=== PATIENT | female | born 1955 | race Caucasian/White ===

== ENCOUNTER 2020-02-27 10:22 | Inpatient (IN) | payer MEDICAID ==
[2020-02-27] VITALS (9 sets, daily range): BP systolic 172–214; BP diastolic 80–120; BMI 32.2
[~2020-02-27] VITALS: Ht 152.4 cm; Wt 74.8 kg
[2020-02-27] MEDS ORDERED: CATAPRES0.1 MG PO (10:53)
[2020-02-27] MEDS ORDERED: NORMODYNE / TR300 MG PO (10:53)
[2020-02-27] MEDS ORDERED: MORPHINE SULFAT60 M5 PO (10:53)
[2020-02-27] MEDS ORDERED: CARDURA8 MG PO (10:54)
[2020-02-27] MEDS ORDERED: ZANAFLEX4 MG PO (10:55)
[2020-02-27 11:50] LABS: BASOPHILS 0.2 % (0-2); EOSINOPHILS 1.4 % (0-7); HEMATOCRIT 36.5 % (36.0-48.0); HEMOGLOBIN 12.8 g/dL (12-16); IMMATURE GRANULOCYTES 0.2 % (0-5); LYMPHOCYTES 17.7 % (15-50); MCHC 35.1 g/dL (31.0-37.0); MCV 85.7 fL (80.0-100.0); MEAN PLATELET VOLUME 9.4 fL (7.4-10.4); MONOCYTES 6.9 % (2-11); NEUTROPHILS 73.6 % (40-80); PLATELET COUNT 233 10x3/uL (130-400); RBC 4.26 10x6/uL (4.00-5.40); RDW 13.2 % (11.5-14.5); WBC 8.1 10x3/uL (4.8-10.8)
[2020-02-27 11:52] LABS: CALC OSMOLALITY 279 mosm/kg (275-300); CALCIUM 10.7 mg/dL (8.5-10.1); CARBON DIOXIDE 24.6 mmol/L (21.0-32.0); CHLORIDE - SERUM 100 mmol/L (98-107); GLUCOSE 146 mg/dL (74-106); POTASSIUM - SERUM 3.2 mmol/L (3.5-5.1); SODIUM 138 mmol/L (136-145); UREA NITROGEN 16 mg/dL (7-18); eGFR NON AFRICAN AMERICAN 59 mL/min (90-120)
[2020-02-27 12:07] LABS: ALBUMIN 4.1 g/dL (3.4-5.0); ALKALINE PHOSPHATASE 80 U/L (30-120); ALT (SGPT) 94 U/L (10-68); AMYLASE - SERUM 23 U/L (25-115); BILIRUBIN - TOTAL 2.04 mg/dL (0.2-1.3); LIPASE 90 U/L (73-393); PRO BNP 534 pg/mL (0-125); PROTEIN - SERUM 7.7 g/dL (6.4-8.2); TROPONIN-I < 0.017 ng/mL (0.000-0.060)
--- NOTE | 2020-02-27 12:25 | NUR ---
URINE SENT TO THE LAB.
[2020-02-27 12:52] LABS: BILIRUBIN NEGATIVE (NEGATIVE); GLUCOSE NEGATIVE (NEGATIVE); KETONE SMALL mg/dL (NEGATIVE); NITRITE NEGATIVE (NEGATIVE); UROBILINOGEN 4 mg/dL (NORMAL)
[2020-02-27 12:55] LABS: RED CELLS - URINE 0-5 /hpf (0-5)
[2020-02-27 12:56] LABS: BACTERIA MODERATE /hpf (NEGATIVE); EPITHELIAL CELLS 0-5 /hpf (0-5)
--- NOTE | 2020-02-27 13:03 | NUR ---
PT TO RADIOLOGY
--- NOTE | 2020-02-27 17:50 | NUR ---
RECEIVED PATIENT FROM ER VIA STRETCHER. ALERT AND ORIENTED. C/O PAIN AND NAUSEA. NO S/S OF ACUTE DISTRESS NOTED. IV TO RIGHT WRIST AND FOREARM, SL. SITES PATENT WITHOUT REDNESS OR SWELLING. DENIES ANY NEEDS AT THIS TIME. VITALS STABLE. CALL LIGHT IN REACH. WILL CONTINUE TO MONITOR.
--- NOTE | 2020-02-27 20:15 | NUR ---
SITTING UP IN BED VOMITING CLEAR EMESIS. GEN WEAKNESS NOTED. ZOFRAN DRIP INFUSING IN RT FOREARM WITH NS WITH 20 MEQ KCL @ 75 ML/HR. SALINE LOCK NOTED TO RT HAND. ALERT AND ORIENTED X4. AMB WITH ASSIST X1 FOR STANDBY. B/P IS ELEVATED. HAS ORAL B/P MED.
--- NOTE | 2020-02-27 21:25 | NUR ---
NOTIFIED JATINDER CALHOUN OF ELEVATED B/P AND VOMITING. NEW ORDER NOTED FOR APRESOLINE IV AT THIS TIME.
[2020-02-28] VITALS (7 sets, daily range): BP systolic 162–210; BP diastolic 85–105; BMI 32.2
--- NOTE | 2020-02-28 00:08 | NUR ---
MEDICATED WITH MORPHINE FOR C/O ABD PAIN RATING 9. CL IN REACH.
--- NOTE | 2020-02-28 00:49 | NUR ---
B/P STILL HIGH. MEDICATED WITH SCHEDULED CATAPRES.
--- NOTE | 2020-02-28 04:05 | NUR ---
MEDICATED WITH MORPHINE FOR C/O ABD PAIN AND BACK PAIN. CL IN REACH.
[2020-02-28 05:20] LABS: BASOPHILS 0.1 % (0-2); EOSINOPHILS 0.7 % (0-7); HEMOGLOBIN 11.4 g/dL (12-16); IMMATURE GRANULOCYTES 0.6 % (0-5); LYMPHOCYTES 20.3 % (15-50); MCH 29.7 pg (26.0-34.0); MCHC 34.5 g/dL (31.0-37.0); MCV 85.9 fL (80.0-100.0); MEAN PLATELET VOLUME 9.6 fL (7.4-10.4); MONOCYTES 7.4 % (2-11); NEUTROPHILS 70.9 % (40-80); PLATELET COUNT 219 10x3/uL (130-400); RBC 3.84 10x6/uL (4.00-5.40); RDW 13.2 % (11.5-14.5); WBC 8.8 10x3/uL (4.8-10.8)
[2020-02-28 05:44] LABS: ALBUMIN 3.4 g/dL (3.4-5.0); ALKALINE PHOSPHATASE 61 U/L (30-120); ALT (SGPT) 79 U/L (10-68); BILIRUBIN - TOTAL 1.73 mg/dL (0.2-1.3); CALC OSMOLALITY 282 mosm/kg (275-300); CALCIUM 9.2 mg/dL (8.5-10.1); CHLORIDE - SERUM 106 mmol/L (98-107); CREATININE - SERUM 0.8 mg/dL (0.6-1.3); GLUCOSE 102 mg/dL (74-106); POTASSIUM - SERUM 3.1 mmol/L (3.5-5.1); PROTEIN - SERUM 6.5 g/dL (6.4-8.2); SODIUM 142 mmol/L (136-145); UREA NITROGEN 12 mg/dL (7-18); eGFR NON AFRICAN AMERICAN 76 mL/min (90-120)
--- NOTE | 2020-02-28 07:00 | NUR ---
ALERT AND ORIENTED, ASSISTED UP TO RESTROOM. NO C/O PAIN. NO S/S OF ACUTE DISTRESS NOTED. SIPS OF WATER WITH MEDS AND ICE CHIPS ONLY. STILL HAVING NAUSEA AND VOMITING THIS AM. IVS TO RIGHT WRIST SL AND FOREARM, NS WITH 20K+ INFUSING @ 75ML/HR. SITES PATENT WITHOUT REDNESS OR SWELLING. ZOFRAN DRIP @ 4.7ML/HR. POTASSIUM 3.1 THIS AM. DENIES ANY NEEDS AT THIS TIME. CALL LIGHT IN REACH. WILL CONTINUE TO MONITOR.
--- NOTE | 2020-02-28 18:29 | NUR ---
RESTING IN BED WITH EYES CLOSED. RESPIRATIONS EVEN AND UNLABORED. NO S/S OF ACUTE DISTRESS NOTED. CALL LIGHT IN REACH. WILL CONTINUE TO MONITOR.
--- NOTE | 2020-02-28 20:15 | NUR ---
ALERT AND ORIENTED X4. RESP EVEN AND NONLABORED. C/O ABD PAIN AND MEDICATED WITH MORHPINE ORDERED. DENIES NAUSEA. NO VOMITING NOTED. ZOFRAN DRIP INFUSING WITH NS WITH 20 MEQ KCL @ 75 MLHR IN RT FOREARM. SALINE LOCK NOTED TO RT HAND. AMBULATORY. GEN WEAKNESS NOTED. SR ELEVATED X2. B/P IS ELEVATED BUT HAS B/P NIGHTLY MED. WILL CONT TO MONITOR. CL IN REACH.
[2020-02-29] VITALS (8 sets, daily range): BP systolic 124–214; BP diastolic 69–110; Ht 152.4 cm; Wt 74.8 kg
--- NOTE | 2020-02-29 00:55 | NUR ---
MEDICATED WITH MORPHINE FOR C/O ABD PAIN. CL IN REACH.
--- NOTE | 2020-02-29 01:00 | NUR ---
MEDICATED WITH TYLENOL FOR C/O H/A.
--- NOTE | 2020-02-29 02:55 | NUR ---
B/P RECHECKED AND IS STILL ELEVATED. MEDICATED WITH APRESOLINE 10 MG ORDERED. WILL CONT TO MONITOR. CL IN REACH.
[2020-02-29 04:43] LABS: BASOPHILS 0.3 % (0-2); EOSINOPHILS 3.1 % (0-7); HEMATOCRIT 30.7 % (36.0-48.0); HEMOGLOBIN 10.5 g/dL (12-16); IMMATURE GRANULOCYTES 0.5 % (0-5); LYMPHOCYTES 26.5 % (15-50); MCH 29.5 pg (26.0-34.0); MCHC 34.2 g/dL (31.0-37.0); MCV 86.2 fL (80.0-100.0); MONOCYTES 9.4 % (2-11); NEUTROPHILS 60.2 % (40-80); PLATELET COUNT 177 10x3/uL (130-400); RBC 3.56 10x6/uL (4.00-5.40); RDW 13.2 % (11.5-14.5)
[2020-02-29 05:00] LABS: WBC 5.9 10x3/uL (4.8-10.8)
[2020-02-29 05:07] LABS: ALBUMIN 3.1 g/dL (3.4-5.0); ANION GAP 12.2 mmol/L (8-16); BILIRUBIN - TOTAL 1.35 mg/dL (0.2-1.3); CALCIUM 8.1 mg/dL (8.5-10.1); CARBON DIOXIDE 24.8 mmol/L (21.0-32.0); CREATININE - SERUM 0.9 mg/dL (0.6-1.3); PROTEIN - SERUM 5.9 g/dL (6.4-8.2)
--- NOTE | 2020-02-29 06:55 | NUR ---
ALERT AND ORIENTED, RESTING IN BED WITH EYES OPEN. NO C/O PAIN. NO S/S OF ACUTE DISTRESS NOTED. IVS TO RIGHT WRIST, SL AND RIGHT FOREARM, NS WITH 20K+ INFUSING @ 75ML/HR. SITES PATENT WITHOUT REDNESS OR SWELLING. POTASSIUM 3.0 THIS AM. DENIES ANY NEEDS AT THIS TIME. CALL LIGHT IN REACH. WILL CONTINUE TO MONITOR.
[2020-02-29 09:12] LABS: HEPATITIS C ANTIBODY >11.0 S/CO RAT (0.0-0.9)
--- NOTE | 2020-02-29 10:34 | NUR ---
I have reviewed this patient and I concur with the Shift Assessment completed by the Licensed Practical Nurse today this shift.
[2020-03-01] VITALS: BP 164/85
[2020-03-01 04:00] VITALS: BP 204/89
--- NOTE | 2020-03-01 06:05 | NUR ---
BP 204/89 - GAVE APRESOLINE 10 MG IV PUSH. NO OTHER NEEDS. WILL CONTINUE TO MONITOR.
[2020-03-01 06:40] LABS: BASOPHILS 0.5 % (0-2); EOSINOPHILS 6.1 % (0-7); HEMATOCRIT 29.6 % (36.0-48.0); IMMATURE GRANULOCYTES 0.2 % (0-5); MCH 29.2 pg (26.0-34.0); MCHC 33.8 g/dL (31.0-37.0); MCV 86.5 fL (80.0-100.0); MEAN PLATELET VOLUME 9.2 fL (7.4-10.4); MONOCYTES 10.5 % (2-11); NEUTROPHILS 54.7 % (40-80); PLATELET COUNT 175 10x3/uL (130-400); RBC 3.42 10x6/uL (4.00-5.40); RDW 13.5 % (11.5-14.5); WBC 4.4 10x3/uL (4.8-10.8)
--- NOTE | 2020-03-01 07:10 | NUR ---
REC'D IN WALKIN ROUND IN BED WITH EYES CLOSED EASILY AROUSED WHEN NAME IS CALLED. RESP EVEN AND UNLABORED WITH NO DISTRESS NOTED. CAN EXPRESS NEEDS AND WANTS. ASSESSMENT COMPLETED. C/L IN REACH AT BEDSIDE.
[2020-03-01 07:12] LABS: ANION GAP 11.8 mmol/L (8-16); BILIRUBIN - TOTAL 0.99 mg/dL (0.2-1.3); CALCIUM 7.7 mg/dL (8.5-10.1); CARBON DIOXIDE 25.2 mmol/L (21.0-32.0); CREATININE - SERUM 0.9 mg/dL (0.6-1.3); PROTEIN - SERUM 5.6 g/dL (6.4-8.2)
[2020-03-01 09:42] VITALS: BP 174/91
[2020-03-01 12:52] VITALS: BP 116/60
--- NOTE | 2020-03-01 13:12 | NUR ---
I have reviewed this patient and I concur with the Shift Assessment completed by the Licensed Practical Nurse today this shift.
[2020-03-01 17:15] VITALS: BP 117/63
[2020-03-01 20:00] VITALS: BP 144/71
[2020-03-02] VITALS (7 sets, daily range): BP systolic 113–183; BP diastolic 68–94
--- NOTE | 2020-03-02 02:38 | NUR ---
ALERT AND ORENTED ABLE TO VOICE NEEDS AND WANTS TO STAFF. I.V, TO LEFT FORE ARM, RIGHT WRIST, WITH NO FLUIDS. RIGHT FOREARM WITH NS WITH 20 OF K. ON ROOM AIR. UP AT CELIA NO NEEDS AT THIS TIME. LAYING IN BED WITH TV ON.
[2020-03-02 07:05] LABS: BASOPHILS 0.2 % (0-2); EOSINOPHILS 6.6 % (0-7); HEMATOCRIT 29.7 % (36.0-48.0); IMMATURE GRANULOCYTES 0.2 % (0-5); LYMPHOCYTES 26.4 % (15-50); MCH 29.2 pg (26.0-34.0); MCHC 33.7 g/dL (31.0-37.0); MCV 86.8 fL (80.0-100.0); MEAN PLATELET VOLUME 9.1 fL (7.4-10.4); MONOCYTES 7.6 % (2-11); PLATELET COUNT 161 10x3/uL (130-400); RBC 3.42 10x6/uL (4.00-5.40); RDW 13.7 % (11.5-14.5); WBC 4.6 10x3/uL (4.8-10.8)
[2020-03-02 07:29] LABS: CALC OSMOLALITY 279 mosm/kg (275-300); CALCIUM 7.6 mg/dL (8.5-10.1); CARBON DIOXIDE 23.2 mmol/L (21.0-32.0); CHLORIDE - SERUM 110 mmol/L (98-107); CREATININE - SERUM 0.8 mg/dL (0.6-1.3); GLUCOSE 105 mg/dL (74-106); POTASSIUM - SERUM 3.1 mmol/L (3.5-5.1); SODIUM 142 mmol/L (136-145); UREA NITROGEN 4 mg/dL (7-18); eGFR NON AFRICAN AMERICAN 76 mL/min (90-120)
--- NOTE | 2020-03-02 08:09 | NUR ---
RESTING IN BED, NO DISTRESS NOTED, EYES CLOSED, IV INFUSING, CONT TO MONITOR SUGARS
[2020-03-02] MEDS ORDERED: SYNTHROID25 MCG PO (20:25)
[2020-03-03] VITALS (13 sets, daily range): BP systolic 148–181; BP diastolic 54–100
[2020-03-03 07:22] LABS: ALBUMIN 3.2 g/dL (3.4-5.0); ANION GAP 10.9 mmol/L (8-16); BILIRUBIN - TOTAL 1.07 mg/dL (0.2-1.3); CALCIUM 7.8 mg/dL (8.5-10.1); CARBON DIOXIDE 24.5 mmol/L (21.0-32.0); CREATININE - SERUM 0.9 mg/dL (0.6-1.3); POTASSIUM - SERUM 3.4 mmol/L (3.5-5.1); PROTEIN - SERUM 5.9 g/dL (6.4-8.2)
--- NOTE | 2020-03-03 08:07 | NUR ---
AWAKE AND ALERT. ORIENTED X3. C/O PAIN UNDER LEFT BREAST. WILL GIVE SCHEDULED OXY SHORTLY. LUNGS ARE CLEAR BILATERALLY, NO COUGH NOTED. SKIN IS INTACT WITHOUT REDNESS. IV TO RIGHT HAND IS PATENT WITHOUT REDNESS AT INSERTION SITE. UP TO BR PER SELF. VOIDED WITHOUT DIFFICULTY. DENIES NEEDS.
[2020-03-03 12:09] LABS: ANA REFLEX - ANTICHROMATIN ABS <0.2 AI (0.0-0.9); ANA REFLEX - CENTROMERE B ABS <0.2 AI (0.0-0.9); ANA REFLEX - DBL STRANDED DNA 11 IU/mL (0-9); ANA REFLEX - DIRECT Positive (Negative); ANA REFLEX - JO-1 AB <0.2 AI (0.0-0.9); ANA REFLEX - RNP ANTIBODIES <0.2 AI (0.0-0.9); ANA REFLEX - SCL-70 <0.2 AI (0.0-0.9); ANA REFLEX - SJOGRENS AB SSA <0.2 AI (0.0-0.9); ANA REFLEX - SJOGRENS AB SSB <0.2 AI (0.0-0.9); ANA REFLEX - SMITH AB <0.2 AI (0.0-0.9)
[2020-03-03 13:04] LABS: BASOPHILS 0.2 % (0-2); EOSINOPHILS 6.4 % (0-7); HEMATOCRIT 31.6 % (36.0-48.0); HEMOGLOBIN 10.9 g/dL (12-16); IMMATURE GRANULOCYTES 0.4 % (0-5); LYMPHOCYTES 29.6 % (15-50); MCH 29.9 pg (26.0-34.0); MCHC 34.5 g/dL (31.0-37.0); MCV 86.8 fL (80.0-100.0); MEAN PLATELET VOLUME 8.9 fL (7.4-10.4); MONOCYTES 5.8 % (2-11); NEUTROPHILS 57.6 % (40-80); PLATELET COUNT 160 10x3/uL (130-400); RBC 3.64 10x6/uL (4.00-5.40); RDW 13.8 % (11.5-14.5); WBC 5.1 10x3/uL (4.8-10.8)
[2020-03-03 13:10] LABS: MITOCHONDRIAL ANTIBODY <20.0 Units (0.0-20.0); SMOOTH MUSCLE ABS (ACTIN) 5 Units (0-19)
[2020-03-03 13:13] LABS: APTT 29.7 SECONDS (22.8-39.4); INR 1.12 (0.85-1.17); PROTIME 14.4 SECONDS (11.6-15.0)
--- NOTE | 2020-03-03 13:47 | EC ---
PATIENT:CHERIE RANDALL DATE OF SERVICE: 02/27/20 SEX: F MEDICAL RECORD: [id number] DATE OF : [birth year] LOCATION:D.[facility] [place] AGE OF PATIENT: 64 ADMISSION DATE: 02/27/20 REFERRING PHYSICIAN: INTERPRETING PHYSICIAN: CASSIE NAVARRO MD ECHOCARDIOGRAM REPORT ECHO CHARGES 4 ECHO COMPLETE Date: 02/29/20 CLINICAL DIAGNOSIS: HTN, ELEVATED BNP ECHOCARDIOGRAPHIC MEASUREMENTS (adult normal given) AC root (d.<3.7cm) 2.8 cm LV Septum d (<1.2 cm> 0.9 cm Valve Excursion 1.8 cm LV Septum (systole) 1.5 cm Left Atria (s.<4.0cm> 4.0 cm LVPW d(<1.2cm) 1.1 cm RV (d.<2.3cm) 3.2 cm LVPW (sytole) 1.4 cm LV diastole(<5.6CM) 3.9 cm MV E-F(>70mm/sec) cm LV systole 2.2 cm LVOT Diameter 1.4 cm MV exc.(>10mm) cm Est.ejection fraction (50-75%) % DOPPLER: LVIT cm/sec A 82 cm/sec E 83 cm/sec LA cm/sec RVSP 32.0 mmHg LVOT 135 cm/sec AOP1/2T m/s Asc. Ao 153 cm/sec RVOT 56 cm/sec RA cm/sec PA 75 cm/sec AV Gradient Peak 9.3 mmHg AV Mean 5.6 mmHg AV Area 1.5 cm MV Gradient Peak 3.6 mmHg MV Mean 2.0 mmHg MV Area cm COMMENTS: Plater Apprentice[facility] Field Enumerator: 3 Dr. Bosch TAPE# PACS Pericardial Effusion N DATE OF SERVICE: Adequate 2D, color flow imaging, spectral Doppler, and M-Mode. No LVH. LV internal dimensions are normal. Wall motion is normal. EF is greater than or equal to 55%. Aortic valve is tricuspid. No evidence of stenosis by Doppler interrogation. Left atrium is normal. Mitral valve shows no prolapse. Trace MR. Right-sided chambers grossly normal. Trace TR. TRANSINT:[id number] Voice Confirmation ID: [id number] DOCUMENT ID: [id number] ECHOCARDIOGRAM REPORT [id number] ELIZABETHCHERIE NAGY CASSIE NAVARRO MD at 1347 CC: [id number] DICTATION DATE: 02/29/20 1345 SOLDERER TORCH: 03/01/20 0007 ADM IN [place] [address] [place] [address]
--- NOTE | 2020-03-03 14:39 | NUR ---
RETURN FROM [employer]ESSING CLEAN DRY AND INTACT NOTED TO MID UPPER ABDOMEN. VS 148/75 P 70 R 18 O2 93% RA. NO COMPLAINTS AT PRESENT. INSTRUCTED PT REGARDING BEDREST/BEDPAN X 4 HOURS. CALL LIGHT IN REACH
[2020-03-04] VITALS: BP 156/86
[2020-03-04 04:00] VITALS: BP 134/86
[2020-03-04 05:39] LABS: BASOPHILS 0.1 % (0-2); EOSINOPHILS 2.4 % (0-7); HEMATOCRIT 30.3 % (36.0-48.0); HEMOGLOBIN 10.4 g/dL (12-16); IMMATURE GRANULOCYTES 0.1 % (0-5); MCH 29.5 pg (26.0-34.0); MCHC 34.3 g/dL (31.0-37.0); MCV 85.8 fL (80.0-100.0); MEAN PLATELET VOLUME 9.5 fL (7.4-10.4); MONOCYTES 7.2 % (2-11); NEUTROPHILS 73.2 % (40-80); PLATELET COUNT 162 10x3/uL (130-400); RBC 3.53 10x6/uL (4.00-5.40); RDW 13.8 % (11.5-14.5)
[2020-03-04 05:46] LABS: WBC 6.8 10x3/uL (4.8-10.8)
[2020-03-04 06:11] LABS: ANION GAP 14.1 mmol/L (8-16); BILIRUBIN - TOTAL 1.2 mg/dL (0.2-1.3); CALCIUM 7.6 mg/dL (8.5-10.1); CARBON DIOXIDE 24.4 mmol/L (21.0-32.0); CREATININE - SERUM 0.9 mg/dL (0.6-1.3); POTASSIUM - SERUM 3.5 mmol/L (3.5-5.1); PROTEIN - SERUM 5.6 g/dL (6.4-8.2)
[2020-03-04 08:00] VITALS: BP 210/98
--- NOTE | 2020-03-04 09:00 | NUR ---
ASSESSMENT PER FLOW SHEET. PATIENT IS WITHOUT DISTRESS.CALL LIGHT IN REACH.
[2020-03-04 12:00] VITALS: BP 114/70
[2020-03-04 14:09] LABS: CEA 1.5 ng/mL (0.0-4.7)
[2020-03-04 16:00] VITALS: BP 106/58
--- NOTE | 2020-03-04 17:49 | NUR ---
REMAINS WITHOUT NEEDS,WITHOUT CHANGE. CONT PLAN OF CARE
--- NOTE | 2020-03-04 19:31 | NUR ---
ASSUMED CARE OF PATIENT AT 1900, PATIENT RESTING QUIETLY WITH EYES CLOSED, AWAKENS TO VERBAL STIMULI, IV INFUSING WITHOUT COMPLICATIONS, PATIENT AMBULATES TO BR WITH STAND BY, PATIEN TOLERATES WELL, DRESSING TO MID UPPER ABDOMIN C/D/I, DENIES NEEDS AT THIS TIME, WILL CONTINUE TO MONITOR PATIENT, CALL LIGHT WITHIN REACH
[2020-03-04 20:00] VITALS: BP 158/76
[2020-03-05 04:00] VITALS: BP 186/87
[2020-03-05 06:14] LABS: BASOPHILS 0.2 % (0-2); EOSINOPHILS 7.2 % (0-7); HEMATOCRIT 28.7 % (36.0-48.0); HEMOGLOBIN 9.9 g/dL (12-16); IMMATURE GRANULOCYTES 0.4 % (0-5); LYMPHOCYTES 23.9 % (15-50); MCH 29.9 pg (26.0-34.0); MCHC 34.5 g/dL (31.0-37.0); MCV 86.7 fL (80.0-100.0); MEAN PLATELET VOLUME 9.4 fL (7.4-10.4); MONOCYTES 10.3 % (2-11); PLATELET COUNT 151 10x3/uL (130-400); RBC 3.31 10x6/uL (4.00-5.40); WBC 5.5 10x3/uL (4.8-10.8)
[2020-03-05 06:37] LABS: ALBUMIN 2.9 g/dL (3.4-5.0); ALKALINE PHOSPHATASE 48 U/L (30-120); ALT (SGPT) 36 U/L (10-68); BILIRUBIN - TOTAL 1.13 mg/dL (0.2-1.3); CALC OSMOLALITY 281 mosm/kg (275-300); CARBON DIOXIDE 26.7 mmol/L (21.0-32.0); CHLORIDE - SERUM 109 mmol/L (98-107); CREATININE - SERUM 0.7 mg/dL (0.6-1.3); GLUCOSE 117 mg/dL (74-106); POTASSIUM - SERUM 3.2 mmol/L (3.5-5.1); PROTEIN - SERUM 5.8 g/dL (6.4-8.2); SODIUM 142 mmol/L (136-145); UREA NITROGEN 7 mg/dL (7-18); eGFR NON AFRICAN AMERICAN 89 mL/min (90-120)
--- NOTE | 2020-03-05 09:00 | NUR ---
ASSESSMENT PER FLOW SHEET. PATIENT IS WITHOUT DISTRESS.CALL LIGHT IN REACH
[2020-03-05 09:51] VITALS: BP 186/94
[2020-03-05 13:32] VITALS: BP 113/70
--- NOTE | 2020-03-05 14:28 | NUR ---
Nutrition follow-up: Diet: Regular PO intake 50-75% of meals labs reviewed WT: 165# PO intake good at this time RDN following.
--- NOTE | 2020-03-05 16:13 | NUR ---
SLEEPING ALOT TODAY. WITHOUT SIGNS OF DISTRESS.MONITOR.
[2020-03-05 16:45] VITALS: BP 123/63
[2020-03-05 20:00] VITALS: BP 133/52
[2020-03-05 22:07] LABS: HIV-1 RNA BY PCR <20 (())
[2020-03-06] VITALS: BP 166/84
--- NOTE | 2020-03-06 02:58 | NUR ---
ALERT AND ORENTED ABLE TO VOICE NEEDS AND WANTS TO STAFF. DRESSING CDI TO ABD. MORPHIN PRN FOR PAIN CONTROL. UP AT CELIA. CALL LIGHT AND WATER IN REACH AT BEDSIDE. NO NEEDS AT THIS TIME
[2020-03-06 04:04] VITALS: BP 146/79
[2020-03-06 04:08] LABS: CA 19-9 13 U/mL (0-35)
[2020-03-06 06:09] LABS: BASOPHILS 0.3 % (0-2); EOSINOPHILS 8.5 % (0-7); HEMATOCRIT 28.7 % (36.0-48.0); HEMOGLOBIN 9.5 g/dL (12-16); IMMATURE GRANULOCYTES 0.3 % (0-5); MCH 28.8 pg (26.0-34.0); MCHC 33.1 g/dL (31.0-37.0); MEAN PLATELET VOLUME 9.4 fL (7.4-10.4); NEUTROPHILS 51.9 % (40-80); PLATELET COUNT 146 10x3/uL (130-400); RDW 14.1 % (11.5-14.5)
[2020-03-06 06:40] LABS: CALC OSMOLALITY 276 mosm/kg (275-300); CALCIUM 7.7 mg/dL (8.5-10.1); CARBON DIOXIDE 25.7 mmol/L (21.0-32.0); CHLORIDE - SERUM 106 mmol/L (98-107); CREATININE - SERUM 0.8 mg/dL (0.6-1.3); GLUCOSE 101 mg/dL (74-106); POTASSIUM - SERUM 3.6 mmol/L (3.5-5.1); SODIUM 140 mmol/L (136-145); UREA NITROGEN 6 mg/dL (7-18); eGFR NON AFRICAN AMERICAN 76 mL/min (90-120)
[2020-03-06 09:12] VITALS: BP 177/96
--- NOTE | 2020-03-06 10:24 | MORECARE ---
CASE MANAGEMENT DISCHARGE SUMMARY PATIENT: CHERIE RANDALL UNIT: [id number] ADM DATE: 02/27/20 AGE: 64 : 55 SEX: F ROOM/BED: D.2231 AUTHOR: DRAKE MORENO PHYSICIAN: REFERRING PHYSICIAN: IGNACIO COLBY MD DATE OF SERVICE: 03/06/20 Discharge Plan Patient Name: CHERIE RANDALL [facility] : 1955 Planned Disposition: Home Anticipated Discharge Date: Discharge Date: Expected LOS: Initial Reviewer: [email or web address] Initial Review Date: 03/06/2020 Generated: 03/06/20 11:24 am DCPIA - Discharge Planning Initial Assessment Updated by [email or web address]: Amy Paul on 03/06/20 10:22 am * Is the patient Alert and Oriented? Yes * PCP PHANI * Pharmacy [facility] * Preadmission Environment Home with Family * ADLs Independent * Other Equipment CANE * Community resources currently utilized None * Additional services required to return to the preadmission environment? No * Can the patient safely return to the preadmission environment? Yes * Has this patient been hospitalized within the prior 30 days at any hospital? Yes Patient Name: CHERIE RANDALL Page [phone] at 1024 All edits/amendments must be made on the electronic document DICTATION DATE: 03/06/20 1024 FISH EGG PACKER: JANNA 03/06/20 1024 RPT#: [id number] DC DATE: STATUS: ADM IN [facility] [address] [place] [address] END OF REPORT
--- NOTE | 2020-03-06 10:34 | MORECARE ---
CASE MANAGEMENT DISCHARGE SUMMARY PATIENT: CHERIE RANDALL UNIT: [id number] ADM DATE: 02/27/20 AGE: 64 : 55 SEX: F ROOM/BED: D.2231 AUTHOR: DRAKE MORENO PHYSICIAN: REFERRING PHYSICIAN: IGNACIO COLBY MD DATE OF SERVICE: 03/06/20 Discharge Plan Patient Name: CHERIE RANDALL Facility: [facility]:[place] : 1955 Planned Disposition: Home Anticipated Discharge Date: Discharge Date: Expected LOS: Initial Reviewer: [email or web address] Initial Review Date: 03/06/2020 Generated: 03/06/20 11:33 am Comments DCP- Discharge Planning Updated by [email or web address]: Amy Paul on 03/06/20 9:[address] Patient Name: CHERIE RANDALL Admission Status: ER Accout number: [id number] Admission Date: 02-27-2020 : 1955 Admission Diagnosis:DISORDER OF BILIRUBIN METABOLISM, UNSPECIFIED Attending: KEZIA Current LOS: 8 Anticipated DC Date: Planned Disposition: Home Primary Insurance: MEDICAID [place] Discharge Planning Comments: CM met with patient at bedside after explaining CM role and obtaining verbal consent. CM discussed availability / needs of home health, REHAB and medical equipment. PATIENT DENIES ANY NEEDS AT THIS TIME. Sales Floor Manager: Amy Paul DCPIA - Discharge Planning Initial Assessment Updated by [email or web address]: Amy Paul on 03/06/20 10:22 am * Is the patient Alert and Oriented? Yes * PCP PHANI * Pharmacy [facility] * Preadmission Environment Home with Family * ADLs Independent * Other Equipment CANE * Community resources currently utilized None * Additional services required to return to the preadmission environment? No * Can the patient safely return to the preadmission environment? Yes * Has this patient been hospitalized within the prior 30 days at any hospital? Yes Last DP export: 03/06/20 9:24 am Patient Name: CHERIE RANDALL Page [phone] at 1034 All edits/amendments must be made on the electronic document DICTATION DATE: 03/06/20 1033 PRIMARY EDUCATION PROFESSOR: JANNA 03/06/20 1033 RPT#: [id number] DC DATE: STATUS: ADM IN [facility] [address] [place] [address] END OF REPORT
--- NOTE | 2020-03-06 10:41 | NUR ---
REC'D SITTING ON SIDE OF BED AWAKE AND ALERT. RESP EVEN AND UNLABORED WITH NO DISTRESS NOTED. CAN EXPRESS NEEDS AND WANTS. NO C/O NOTED OR VOICED. ASSESSMENT COMPLETED. C/L IN REACH AT BEDSIDE.
[2020-03-06 13:21] VITALS: BP 155/82
[2020-03-06 16:00] VITALS: BP 147/83
--- NOTE | 2020-03-06 18:42 | NUR ---
I have reviewed this patient and I concur with the Shift Assessment completed by the Licensed Practical Nurse today this shift.
[2020-03-06 20:00] VITALS: BP 187/95
--- NOTE | 2020-03-06 20:00 | NUR ---
PATIENT SITTING IN CHAIR HOLDING PILLOW. NO S/S OF ACUTE DISTRESS. PATIENT C/O PAIN IN BACK AND ABDOMEN. PAIN MEDICINE GIVEN. PATIENT HAS A RIGH WRIST IV, NORMAL SALINE WITH 20 MEQ OF K+ @ 75 ML/HR. IV IS PATENT WITHOUT REDNESS, SWELLING, OR TENDERNESS. PATIENT HAS DRESSING ON MID-UPPER ABDOMEN, DRESSING C/D/I. PATIENT IS UP ADLIB TO THE BATHROOM. CALL LIGHT WITHIN REACH. WILL CONTINUE TO MONITOR.
--- NOTE | 2020-03-06 20:30 | NUR ---
PATIENT IV INFILTRATED. IV REMOVED. CATHETER TIP INTACT. PATIENT REFUSED ANOTHER IV TO BE PLACED, "WHY DO I HAVE TO HAVE ONE IF I AM GOING HOME TOMORROW." I EXPLAINED TO PATIENT THAT SHE WON'T BE ABLE TO GET THE IV MORPHINE UNLESS WE START ANOTHER, AND THAT IF HER BLOOD PRESSURE BECOMES TOO HIGH I WILL HAVE TO START ANOTHER IV. SHE AGREED, BUT STILL REFUSE TO HAVE ONE PLACED AT THIS TIME. CALL LIGHT WITHIN REACH. WILL CONTINUE TO MONITOR.
[2020-03-07] VITALS: BP 175/90
--- NOTE | 2020-03-07 02:04 | NUR ---
I have reviewed this patient and I concur with the Shift Assessment completed by the Licensed Practical Nurse today this shift.
[2020-03-07 04:00] VITALS: BP 171/96
--- NOTE | 2020-03-07 06:45 | NUR ---
A&O RESTING IN BED WITH EYES OPEN. NO C/O PAIN. NO S/S OF ACUTE DISTRESS NOTED. REFUSED TO LET MIDDLE SCHOOL DIRECTOR NURSE RESITE IV, NO IV ACCESS. UP WITH ASSIST. REFUSED SCDS. DENIES ANY NEEDS AT THIS TIME. CALL LIGHT IN REACH. WILL CONTINUE TO MONITOR.
[2020-03-07 08:55] VITALS: BP 187/95
[2020-03-07] MEDS ORDERED: DILTIAZEM 24HR240 M4 PO (09:23)
[2020-03-07] MEDS ORDERED: MORPHINE IMMEDI15 MG PO (09:25)
[2020-03-07] MEDS ORDERED: NORMODYNE / TR300 MG PO (09:43)
--- NOTE | 2020-03-07 13:47 | NUR ---
DISCHARGED PATIENT HOME WITH FAMILY VIA WHEELCHAIR. DENIES ANY NEEDS AT THIS TIME. WENT OVER DISCHARGE INSTRUCTIONS WITH PATIENT, VERBALIZED UNDERSTANDING.
[2020-03-07 22:07] LABS: HCVGENO - HEP C QUANT 861000 IU/mL (()); HCVGENO - LOG 10 5.935 (())
--- NOTE | 2020-03-08 09:19 | MORECARE ---
CASE MANAGEMENT DISCHARGE SUMMARY PATIENT: CHERIE RANDALL UNIT: [id number] ADM DATE: 02/27/20 AGE: 64 : 55 SEX: F ROOM/BED: D.2231 AUTHOR: DRAKE MORENO PHYSICIAN: REFERRING PHYSICIAN: IGNACIO COLBY MD DATE OF SERVICE: 03/08/20 Discharge Plan Patient Name: CHERIE RANDALL Facility: [facility]:[place] : 1955 Planned Disposition: Home Anticipated Discharge Date: Discharge Date: 03/07/2020 Expected LOS: Initial Reviewer: [email or web address] Initial Review Date: 03/06/2020 Generated: 03/08/20 10:19 am Comments DCP- Discharge Planning Updated by [email or web address]: Amy Paul on 03/06/20 9:[address] Patient Name: CHERIE RANDALL Admission Status: ER Accout number: [id number] Admission Date: 02-27-2020 : 1955 Admission Diagnosis:DISORDER OF BILIRUBIN METABOLISM, UNSPECIFIED Attending: KEZIA Current LOS: 8 Anticipated DC Date: Planned Disposition: Home Primary Insurance: MEDICAID [place] Discharge Planning Comments: CM met with patient at bedside after explaining CM role and obtaining verbal consent. CM discussed availability / needs of home health, REHAB and medical equipment. PATIENT DENIES ANY NEEDS AT THIS TIME. Product Safety Coordinator: Amy Paul DCPIA - Discharge Planning Initial Assessment Updated by [email or web address]: Amy Paul on 03/06/20 10:22 am * Is the patient Alert and Oriented? Yes * PCP PHANI * Pharmacy [facility] * Preadmission Environment Home with Family * ADLs Independent * Other Equipment CANE * Community resources currently utilized None * Additional services required to return to the preadmission environment? No * Can the patient safely return to the preadmission environment? Yes * Has this patient been hospitalized within the prior 30 days at any hospital? Yes Last DP export: 03/06/20 9:33 am Patient Name: CHERIE RANDALL Page [phone] at 0919 All edits/amendments must be made on the electronic document DICTATION DATE: 08/08/20 0919 BROACHING MACHINE REPAIRER: JANNA 03/08/20918 RPT#: [id number] DC DATE:03/07/20 STATUS: DIS IN [facility] [address] [place] [address] END OF REPORT
== END 2020-03-07 13:48 | disposition home or self-care (01) | DRG 305 ==
LOC: D.ER 10:22 → D.MS 15:42
PROVIDERS: Family Medicine; General Practice; Internal Medicine Gastroenterology; Legal Medicine; ADMIT Emergency Medicine; ATTEND Emergency Medicine
PROC: 0FBG3ZX Excision of Pancreas, Percutaneous Approach, Diagnostic (ICD-10-PCS; principal; 2020-03-03 13:50)
DX: I16.0 Hypertensive urgency (principal); N39.0 Urinary tract infection, site not specified; E80.7 Disorder of bilirubin metabolism, unspecified; K31.84 Gastroparesis; R11.2 Nausea with vomiting, unspecified; R10.9 Unspecified abdominal pain; B19.20 Unspecified viral hepatitis C without hepatic coma; K86.9 Disease of pancreas, unspecified; R53.1 Weakness

== ENCOUNTER 2020-03-25 12:41 | Inpatient (IN) | payer MEDICAID ==
[~2020-03-25] VITALS: Ht 152.4 cm; Wt 68.0 kg
[2020-03-25] VITALS (7 sets, daily range): BP systolic 191–240; BP diastolic 98–118
--- NOTE | ~2020-03-25 | HEMODYNAMI ---
PATIENT:CHERIE RANDALL MEDICAL RECORD: [id number] : 55 LOCATION:D.MS [place].2214 ADMISSION DATE: 03/25/20 Generatedon:04/16/202013:52 Patient name: CHERIE RANDALL Patient #: [id number] SSN: : 1955 Date of study: 04/16/2020 Page: Of Hemodynamic Procedure Report Patient Data Patient Demographics Procedure consent was obtained First Name: CHERIE Gender: Female Last Name: TONIA : 1955 Patient #: [id number] Age: 64 year(s) Race: Unknown Additional ID: [id number] Contact details Address: [address] [place] [address] State: [place] City: [place] Zip code: [address] Past Medical History Allergies Allergen Reaction Date Comments Reported Other allergy 03/28/2020 noravasc Other allergy 04/02/2020 norvasc Other allergy 04/16/2020 [facility] Admission Admission Data Admission Date: 03/25/2020 Admission Time: 22:24 Room #: D.2214 Height (in.): 60 BSA: 1.65 (m2) Height (cm.): 152.4 BMI: 29.29 (kg/m2) Weight (lbs.): 150 Weight (kg.): 68.04 Procedure Procedure Types Cath Procedure Peripheral Cath Diagnostic Procedure Aluminizer Peripheral Procedures Biliary Biliary Catheter Exchange Procedure Description Procedure Date Procedure Date: 04/16/2020 Procedure Start Time: 13:44 Procedure Staff Name Function Toya Schaeffer RT Biomass Technician Rigoberto Segundo RT Scrub Matt Mayberry MD Performing Physician Margoth Quinones RN Nurse Procedure Data Cath Procedure Fluoroscopy Diagnostic fluoroscopy Total fluoroscopy Time: 0.3 time: 0.3 min min Diagnostic fluoroscopy Total fluoroscopy dose: 10 dose: 10 mGy mGy Contrast Material Contrast Material Type Amount (ml) Isovue 300 25 Hemodynamics Rest BSA: 1.65 (m2) O2 Consumption: Estimated: 161.99 (ml/min) O2 Consumption indexed : Estimated:98.18 (ml/min/m) Heart Rate: 82 (bpm) Snapshots Pre Cath Intra NCS Post Cath Vital Signs Time Heart Resp SPO2 etCO2 NIBP (mmHg) Rhythm Pain Sedation Rate (ipm) (%) (mmHg) Status Level (bpm) 13:33:21 80 16 97 0 135/78(117) NSR 0 (11) 10(A) , No pain 13:37:30 79 18 96 0 133/79(107) NSR 0 (11) 10(A) , No pain 13:41:42 80 15 97 0 129/72(96) NSR 0 (11) 10(A) , No pain 13:45:50 81 17 95 0 123/77(88) NSR 0 (11) 10(A) , No pain 13:49:56 78 17 96 0 128/76(114) NSR 0 (11) 10(A) , No pain Procedure Log Time Note 13:29:37 Patient Weight : 150 lbs 13:29:37 Patient Height : 60 inches 13:29:49 Use device set IR Diagnostic 13:29:50 Tegaderm 4 x 4 (1626W) opened to sterile field. 13:29:51 Sterile Angiographic Pack opened to sterile field. 13:29:52 Bag Decanter (2002S) opened to sterile field. 13:30:02 Time tracking: Regular hours (M-F 7:00 - 5:00) 13:30:57 Plan of Care:Hemodynamics will remain stable., Cardiac rhythm will remain stable., Comfort level will be maintained., Respiratory function will remain adequate., Patient/ family verbilizes understanding of procedure., Procedure tolerated without complication., Recovers from procedure without complications.. 13:31:06 Patient received from Med/Surg to IR Alert and oriented. Tansferred to table in Supine position. 13:31:09 Signed procedure consent form obtained from patient. 13:31:11 ECG and BP/O2 sat monitors applied to patient. 13:31:18 Baseline sample Acquired. 13:32:05 Vital chart was started 13:32:09 Full Disclosure recording started 13:32:11 - 13:32:16 H&P Date Dictated: 04/16/2020 Within 30 days and on chart.. 13:32:19 Pre-procedure instructions explained to patient. 13:32:20 Pre-op teaching completed and patient verbalized understanding. 13:32:23 Family unavailable. 13:32:26 Patient NPO since Midnight. 13:32:48 Patient allergic to Other allergynorvasc 13:32:53 Is the patient allergic to Iodine/contrast media? No. 13:33:19 Patient diabetic? No. 13:33:22 - 13:33:25 ----Pre-sedation anethsthesia assessment.---- 13:33:29 Previous problem with sedation/anesthesia? No ? 13:33:33 Snore? Yes 13:33:36 Sleep apnea? No 13:33:40 Deviated septum? No 13:33:43 Opens mouth fully? Yes 13:33:45 Sticks out tongue? Yes 13:33:59 Airway obstruction? No ? 13:34:07 Dentures? No ? 13:34:16 Right abdomen area was prepped with chlora-prep and draped in sterile fashion 13:34:19 - 13:44:09 Physician arrived 13:44:10 Final Timeout: patient, procedure, and site verified with staff and physician. All members of the team are in agreement. 13:44:10 --------ALL STOP TIME OUT------ 13:44:30 Fire Safety Assessment: A--An alcohol-based skin anteseptic being used preoperatively., C--Open oxygen or nitrous oxide is being used. 13:44:36 Procedure started. 13:48:14 Procedure ended.(Physican Out) 13:50:25 Report given to Med/Surg. 13:50:49 Vital chart was stopped 13:50:53 Full Disclosure recording stopped 13:52:28 Fluoroscopy time 00.30 minutes. 13:52:31 Fluoroscopy dose: 10 mGy 13:52:31 Flurop Dose total: 10 13:52:37 Contrast amount:Isovue 300 25ml. Device Usage Item Name Manufacture Quantity Catalog Hospital Part Current Minimal Lot# / Number Charge Number Stock Stock Serial# Code Tegaderm 4 x 3M 1 [id number] 4 (1626W) Sterile Cardinal 1 [id number] Angiographic Health Pack Bag Decanter [employer] 1 [id number] () [employer] Signature Audit [place] Time Signature Unsigned Intra-Procedure 04/16/2020 Toya Schaeffer RT(R) 1:50:46 PM RT(R) 04/16/2020 1:52:11 PM Intra-Procedure 04/16/2020 Toya Schaeffer 1:52:50 PM RT(R) [facility] [address] [place] [address]
--- NOTE | ~2020-03-25 | HEMODYNAMI ---
PATIENT:CHERIE RANDALL MEDICAL RECORD: [id number] : 55 [place]ATION:[place] D.2214 ADMISSION DATE: 03/25/20 Generatedon:03/28/202015:09 Patient name: CHERIE RANDALL Patient #: [id number] SSN: : 1955 Date of study: 03/28/2020 Page: Of Hemodynamic Procedure Report Patient Data Patient Demographics Procedure consent was obtained First Name: CHERIE Gender: Female Last Name: TONIA : 1955 Patient #: [id number] Age: 64 year(s) Race: Unknown Additional ID: [id number] Contact details [address]: [address] [place] [address] State: [place] City: [place] Zip code: [address] Past Medical History Allergies Allergen Reaction Date Comments Reported Other allergy 03/28/2020 [facility] Admission Admission Data Admission Date: 03/25/2020 Admission Time: 22:24 Room #: D.2214 Height (in.): 60 BSA: 1.65 (m2) Height (cm.): 152.4 BMI: 29.29 (kg/m2) Weight (lbs.): 150 Weight (kg.): 68.04 Procedure Procedure Types Cath Procedure Peripheral Cath Diagnostic Procedure Sail Lay Out Worker Peripheral Procedures Biliary PTC Procedure Description Procedure Date Procedure Date: 03/28/2020 Procedure Start Time: 14:40 Procedure Staff Name Function Matt Mayberry MD Performing Physician Toya Schaeffer RT Weather Analyst Margoth Quinones RN Nurse Rigoberto Segundo RT Scrub Pérez Ochoa CRNA Additional personnel Procedure Data Cath Procedure Fluoroscopy Diagnostic fluoroscopy Total fluoroscopy Time: 7.1 time: 7.1 min min Diagnostic fluoroscopy Total fluoroscopy dose: 159 dose: 159 mGy mGy Contrast Material Contrast Material Type Amount (ml) Isovue 300 30 Procedure Medications Medication Administration Route Dosage Lidocaine 1% added to field 20 Heparin Flush Bag added to field 2 bags (1000units/500ml NS) Refer to Anesthesia Notes for Sedation Medications Hemodynamics Rest BSA: 1.65 (m2) O2 Consumption: Estimated: 161.5 (ml/min) O2 Consumption indexed: Estimated:97.88 (ml/min/m) Heart Rate: 81 (bpm) Snapshots Pre Cath Intra NCS Post Cath Vital Signs Time Heart Resp SPO2 etCO2 NIBP (mmHg) Rhythm Pain Sedation Rate (ipm) (%) (mmHg) Status Level (bpm) 14:25:49 93 4 100 31.3 149/111(145) NSR 0 (11) 10(A) , No pain 14:29:32 77 15 100 32 151/87(127) NSR 0 (11) 10(A) , No pain 14:33:44 77 12 100 32.8 154/84(131) NSR 0 (11) 10(A) , No pain 14:37:58 74 9 100 33.5 143/83(112) NSR 0 (11) 10(A) , No pain 14:42:10 74 9 100 17.1 138/75(112) NSR 0 (11) 10(A) , No pain 14:46:22 75 10 100 14.9 137/72(113) NSR 0 (11) 10(A) , No pain 14:50:27 77 12 100 27.6 154/87(131) NSR 0 (11) 10(A) , No pain 14:54:41 74 10 100 15.6 146/80(117) NSR 0 (11) 10(A) , No pain 14:58:53 71 12 100 28.3 146/80(125) NSR 0 (11) 10(A) , No pain 15:03:07 69 17 100 27.5 141/75(118) NSR 0 (11) 10(A) , No pain 15:07:17 68 18 100 29 140/78(120) NSR 0 (11) 10(A) , No pain Medications Time Medication Route Dose Verified Delivered Reason Notes Effe ctiveness by by 14:28:33 Lidocaine 1% added 20ml Matt Gutierrez for local to vial Mayberry Mayberry anesthetic field MD BURNETT 14:28:46 Heparin Flush added 2 Matt Gutierrez used for Bag to bags Mayberry Mayberry procedure (1000units/500ml field MD BURNETT NS) 14:28:54 Refer to Matt Gutierrez Anesthesia Notes Mayberry Mayberry for Sedation MD BURNETT Medications Procedure Log Time Note 13:56:12 Patient Height : 60 inches 13:56:49 Patient Weight : 150 lbs 14:00:09 Use device set IR Diagnostic 14:00:33 KIT, INTRODUCER ACCUSTICK II W/C ([id number]) opened to sterile field. 14:00:34 Tegaderm 4 x 4 (1626W) opened to sterile field. 14:00:35 Sterile Angiographic Pack opened to sterile field. 14:00:36 Bag Decanter (2002S) opened to sterile field. 14:10:13 - 14:14:49 Time tracking: Regular hours (M-F 7:00 - 5:00) 14:15:02 Plan of Care:Hemodynamics will remain stable., Cardiac rhythm will remain stable., Comfort level will be maintained., Respiratory function will remain adequate., Patient/ family verbilizes understanding of procedure., Procedure tolerated without complication., Recovers from procedure without complications.. 14:15:09 Patient received from Med/Surg to IR Alert and oriented. Tansferred to table in Supine position. 14:15:12 Signed procedure consent form obtained from patient. 14:15:26 H&P Date Dictated: 03/28/2020 Within 30 days and on chart.. 14:15:28 Pre-procedure instructions explained to patient. 14:15:30 Pre-op teaching completed and patient verbalized understanding. 14:15:32 Family unavailable. 14:15:35 Patient NPO since Midnight. 14:15:58 Patient allergic to Other allergynoravasc 14:16:04 Is the patient allergic to Iodine/contrast media? No. 14:16:07 Is patient on blood thinner?No 14:16:10 - 14:16:13 ----Pre-sedation anethsthesia assessment.----see anesthesia notes for monitoring of patient during procedure 14:17:07 - 14:24:22 Right abdomen area was prepped with chlora-prep and draped in sterile fashion 14:24:25 - 14:24:36 ECG and BP/O2 sat monitors applied to patient. 14:24:38 Vital chart was started 14:24:49 Baseline sample Acquired. 14:24:52 Full Disclosure recording started 14:24:53 - 14:25:25 Fire Safety Assessment: A--An alcohol-based skin anteseptic being used preoperatively., C--Open oxygen or nitrous oxide is being used. 14:28:33 Lidocaine 1% 20ml vial added to field was administered by Matt Mayberry MD; for local anesthetic; Verbal order read back and verified. 14:28:46 Heparin Flush Bag (1000units/500ml NS) 2 bags added to field was administered by Matt Mayberry MD; used for procedure; Verbal order read back and verified. 14:28:54 Refer to Anesthesia Notes for Sedation Medications was administered by Matt Mayberry MD; ; Verbal order read back and verified. 14:39:05 Physician arrived 14:39:06 --------ALL STOP TIME OUT------ 14:39:07 Final Timeout: patient, procedure, and site verified with staff and physician. All members of the team are in agreement. 14:39:51 Procedure started. 14:40:15 Local anesthetic to Abdominal area with Lidocaine 1% by Matt Mayberry MD.INITIAL ACCESS ONLY 14:46:11 NITINOL .018 80cm wire ([id number]) opened to sterile field. 14:46:30 CHIBA 22 X 15 needle opened to sterile field. 14:55:26 AMPLATZ Super stiff 180cm wire ([id number]) opened to sterile field. 14:55:42 DILATOR, VESSEL 8/20 opened to sterile field. 14:55:59 PEEL-A-WAY INTRODUCER 11Fr opened to sterile field. 14:56:17 GLIDE CATHETER 5FR ANGLED 65cm (CG507) opened to sterile field. 14:56:37 ROADRUNNER .035 145 glide wire (Z05084) opened to sterile field. 15:00:06 Cook BILIARY 12 FR drainage catheter ([id number]) opened to sterile field. 15:00:07 STOPCOCK 3-Way Large Bore (M83847) opened to sterile field. 15:00:08 BAG, DRAINAGE EMPTY 600ML W/PJ (NIL279) opened to sterile field. 15:03:23 Procedure ended.(Physican Out) 15:03:47 Fluoroscopy time 07.10 minutes. 15:03:51 Flurop Dose total: 159 15:03:51 Fluoroscopy dose: 159 mGy 15:03:58 Contrast amount:Isovue 300 30ml. 15:04:06 Procedure and supply charges have been captured, reviewed, submitted an d are correct. 15:09:22 Vital chart was stopped Device Usage Item Name Manufacture Quantity Catalog Hospital Part Current Minimal Lot# / Number Charge Number Stock Stock Serial# Code KIT, [place] 1 [id number] [id number] [id number] 5 INTRODUCER Scientific ACCUSTICK II W/C ([id number]) Tegaderm 4 x 3M 1 1626W [id number] 258099 716700 5 4 (1626W) Sterile Cardinal 1 [id number] 073741 162108 5 Angiographic Health Pack Bag Decanter Microtek 1 635259 09981 549114 5 (2002S) Medical Inc. NITINOL .018 Medtronic 1 [id number] 458272 564235 5 80cm wire (A232505) CHIBA 22 X [facility] 1 L76994 442173 766306 5 15 needle AMPLATZ [place] 1 [id number] 923138 685761 936979 5 Super stiff Scientific 180cm wire ([id number]) DILATOR, [facility] 1 A34406 777904 23132 114837 5 VESSEL 03/20 PEEL-A-WAY [facility] 1 D35220 773080 312684 487234 5 INTRODUCER 11Fr GLIDE Terumo 1 CG507 549905 585110 5 CATHETER 5FR ANGLED 65cm (CG507) ROADRUNNER [facility] 1 D71088 241475 657428 690272 5 .035 145 glide wire (K45880) [place] BILIARY [facility] 1 O11451 424467 188002 083213 5 [id number] 12 FR drainage catheter (U95490) STOPCOCK [facility] 1 I76775 166756 0865 022458 5 [id number] 3-Way Large Bore (V70144) BAG, Merit 1 PSD945 471302 605962 433370 5 DRAINAGE Medical EMPTY 600ML W/PJ (KOC515) Signature Audit Natalia Stage Time Signature Unsigned Intra-Procedure 03/28/2020 Toya Schaeffer 3:09:13 PM RT(R) [facility] [address] [place] [address]
--- NOTE | ~2020-03-25 | HEMODYNAMI ---
PATIENT:CHERIE RANDALL MEDICAL RECORD: [id number] : 55 LOCATION:[facility] D.2214 ADMISSION DATE: 03/25/20 Generatedon:04/02/202012:06 Patient name: CHERIE RANDALL Patient #: [id number] SSN: : 1955 Date of study: 04/02/2020 Page: Of Hemodynamic Procedure Report Patient Data Patient Demographics Procedure consent was obtained First Name: CHERIE Gender: Female Last Name: TONIA : 1955 Patient #: [id number] Age: 64 year(s) Race: Unknown Additional ID: [id number] Contact details Address: [address] [place] [address] State: [place] City: [place] Zip code: [address] Past Medical History Allergies Allergen Reaction Date Comments Reported Other allergy 03/28/2020 [facility] Other allergy 04/02/2020 [facility] Admission Admission Data Admission Date: 03/25/2020 Admission Time: 22:24 Room #: .2214 Height (in.): 60 BSA: 1.65 (m2) Height (cm.): 152.4 BMI: 29.29 (kg/m2) Weight (lbs.): 150 Weight (kg.): 68.04 Procedure Procedure Types Cath Procedure Peripheral Cath Diagnostic Procedure Biliary Biliary Catheter Exchange Procedure Description Procedure Date Procedure Date: 04/02/2020 Procedure Start Time: 11:38 Procedure Staff Name Function Pj Watts MD Performing Physician Toya Schaeffer RT Tin Pot Operator Margoth Quinones RN Nurse Rigoberto Segundo RT Scrub Gelacio Cox MD Additional personnel Procedure Data Cath Procedure Fluoroscopy Diagnostic fluoroscopy Total fluoroscopy Time: 1 time: 1 min min Diagnostic fluoroscopy Total fluoroscopy dose: 43 dose: 43 mGy mGy Contrast Material Contrast Material Type Amount (ml) Isovue 300 25 Procedure Medications Medication Administration Route Dosage Lidocaine 1% added to field 20 Heparin Flush Bag added to field 1 bags (1000units/500ml NS) unlisted medication I.V.P.B 2 Hemodynamics Rest BSA: 1.65 (m2) O2 Consumption: Estimated: 161.71 (ml/min) O2 Consumption indexed : Estimated:98.01 (ml/min/m) Heart Rate: 81 (bpm) Snapshots Pre Cath Intra NCS Post Cath Vital Signs Time Heart Resp SPO2 etCO2 NIBP (mmHg) Rhythm Pain Sedation Rate (ipm) (%) (mmHg) Status Level (bpm) 11:35:29 85 8 96 26.2 174/102(143) NSR 0 (11) 10(A) , No pain 11:39:48 79 13 97 31.4 171/94(136) NSR 0 (11) 10(A) , No pain 11:44:01 82 14 97 26.2 174/96(144) NSR 0 (11) 10(A) , No pain 11:48:18 84 17 95 29.2 185/105(153) NSR 0 (11) 10(A) , No pain 11:52:38 83 13 97 28.4 186/101(151) NSR 0 (11) 10(A) , No pain 11:56:58 81 14 95 30.7 186/99(152) NSR 0 (11) 10(A) , No pain 12:01:18 79 13 96 28.4 186/105(156) NSR 0 (11) 10(A) , No pain 12:05:38 80 13 95 0 186/102(152) NSR 0 (11) 10(A) , No pain Medications Time Medication Route Dose Verified Delivered Reason Notes Eff ectiveness by by 11:34:47 Lidocaine 1% added 20ml Pj Oliva for local to vial Mac Watts MD anesthetic field 11:34:59 Heparin Flush added 1 Pj Oliva used for Bag to bags Mac Watts MD procedure (1000units/500ml field BURNETT NS) 11:40:29 rocephin I.V.P.B 2gm Pj Justin Per Joni Watts RN physician MD Procedure Log Time Note 10:24:48 Patient Height : 60 inches 10:24:48 Patient Weight : 150 lbs 11:21:26 Use device set IR Diagnostic 11:21:27 Tegaderm 4 x 4 (1626W) opened to sterile field. 11:21:28 Sterile Angiographic Pack opened to sterile field. 11:21:29 Bag Decanter () opened to sterile field. 11:21:50 Cook BILIARY 14FR drainage catheter (F97368) opened to sterile field. 11:21:58 Time tracking: Regular hours (M-F 7:00 - 5:00) 11:25:48 Plan of Care:Hemodynamics will remain stable., Cardiac rhythm will remain stable., Comfort level will be maintained., Respiratory function will remain adequate., Patient/ family verbilizes understanding of procedure., Procedure tolerated without complication., Recovers from procedure without complications.. 11:25:57 Patient received from Med/Surg to IR Alert and oriented. Tansferred to table in Supine position. 11:26:00 Signed procedure consent form obtained from patient. 11:26:13 H&P Date Dictated: 04/02/2020 Within 30 days and on chart.. 11:26:18 Pre-procedure instructions explained to patient. 11:26:20 Pre-op teaching completed and patient verbalized understanding. 11:26:21 Pre-op teaching completed and patient verbalized understanding. 11:26:28 Family unavailable. 11:26:31 Patient NPO since Midnight. 11:26:52 Patient allergic to Other allergynorvasc 11:26:57 Is the patient allergic to Iodine/contrast media? No. 11:27:00 Is patient on blood thinner?No 11:27:11 Patient diabetic? No. 11:27:16 - 11:27:17 ----Pre-sedation anethsthesia assessment.----see anesthesia notes for monitoring of patient during procedure 11:27:50 - 11:28:00 Right abdomen area was prepped with chlora-prep and draped in sterile fashion 11:28:02 - 11:28:10 Fire Safety Assessment: A--An alcohol-based skin anteseptic being used preoperatively., C--Open oxygen or nitrous oxide is being used. 11:34:20 Baseline sample Acquired. 11:34:26 Vital chart was started 11:34:47 Lidocaine 1% 20ml vial added to field was administered by Pj Watts MD; for local anesthetic; Verbal order read back and verified. 11:34:59 Heparin Flush Bag (1000units/500ml NS) 1 bags added to field was administered by Pj Watts MD; used for procedure; Verbal order read back and verified. 11:37:58 Physician arrived 11:37:58 --------ALL STOP TIME OUT------ 11:38:00 Final Timeout: patient, procedure, and site verified with staff and physician. All members of the team are in agreement. 11:38:29 Procedure started. 11:38:29 Full Disclosure recording started 11:38:35 Local anesthetic to Abdominal area with Lidocaine 1% by Pj Watts MD.INITIAL ACCESS ONLY 11:40:29 rocephin 2gm I.V.P.B was administered by Margoth Quinones RN; Per physician; Verbal order read back and verified. 11:41:41 BENTSON 145cm wire (L10198) opened to sterile field. 11:44:09 STOPCOCK 3-Way Large Bore ([id number]) opened to sterile field. 11:44:10 BAG, DRAINAGE EMPTY 600ML W/PJ (BAO121) opened to sterile field. 11:49:38 14fr biliary drain placed 11:50:14 Procedure ended.(Physican Out) 11:50:41 Fluoroscopy time 01.00 minutes. 11:50:45 Fluoroscopy dose: 43 mGy 11:50:45 Flurop Dose total: 43 11:50:50 Contrast amount:Isovue 300 25ml. 11:50:52 Procedure and supply charges have been captured, reviewed, submitted an d are correct. 11:51:50 Report given to Med/Surg. 12:06:49 Vital chart was stopped Device Usage Item Name Manufacture Quantity Catalog Hospital Part Current Minimal Lot# / Number Charge Number Stock Stock Serial# Code Tegaderm 4 x 3M 1 1626W [id number] 625649 [id number] 5 4 (1626W) Sterile Cardinal 1 [id number] 331248 373827 5 Angiographic Health Pack Bag Decanter Microtek 1 2001S 535417 21927 160189 5 (2001S) [employer] Cook BILIARY Cook Medical 1 A23830 279404 360673 302263 5 [id number] 14FR drainage catheter (R15348) BENTSON Cook Medical 1 R74091 536957 191065 5 145cm wire (T55185) STOPCO Cook Medical 1 N31830 180447 5489 579239 5 [id number] 3-Way Large Bore (E29123) BAG, Merit 1 [id number] 030392 403952 601358 5 DRAINAGE Medical EMPTY 600ML W/PJ (IOB326) Signature Audit Kathleen Stage Time Signature Unsigned Intra-Procedure 04/02/2020 Toya Schaeffer 12:06:45 PM RT(R) [facility] [address] [place] [address]
[~2020-03-25 12:41] MED LIST: CARDURA8 MG PO; CATAPRES0.1 MG PO; DILTIAZEM 24HR240 M4 PO; MORPHINE IMMEDI15 MG PO; MORPHINE SULFAT60 M5 PO; NORMODYNE / TR300 MG PO; SYNTHROID25 MCG PO; ZANAFLEX4 MG PO
[2020-03-25 13:36] LABS: CALC OSMOLALITY 270 mosm/kg (275-300); CHLORIDE - SERUM 99 mmol/L (98-107); CREATININE - SERUM 0.7 mg/dL (0.6-1.3); POTASSIUM - SERUM 3.5 mmol/L (3.5-5.1); SODIUM 134 mmol/L (136-145); UREA NITROGEN 10 mg/dL (7-18); eGFR NON AFRICAN AMERICAN 89 mL/min (90-120)
[2020-03-25 13:37] LABS: GLUCOSE 174 mg/dL (74-106)
[2020-03-25 13:43] LABS: ALBUMIN 3.4 g/dL (3.4-5.0); ALKALINE PHOSPHATASE 165 U/L (30-120); ALT (SGPT) 57 U/L (10-68); BILIRUBIN - TOTAL 7.15 mg/dL (0.2-1.3); PROTEIN - SERUM 6.8 g/dL (6.4-8.2)
[2020-03-25 13:49] LABS: BASOPHILS 0.2 % (0-2); EOSINOPHILS 0.9 % (0-7); HEMATOCRIT 31.2 % (36.0-48.0); HEMOGLOBIN 10.6 g/dL (12-16); IMMATURE GRANULOCYTES 0.3 % (0-5); LYMPHOCYTES 10.5 % (15-50); MCV 88.4 fL (80.0-100.0); MEAN PLATELET VOLUME 9.4 fL (7.4-10.4); MONOCYTES 7.2 % (2-11); NEUTROPHILS 80.9 % (40-80); RBC 3.53 10x6/uL (4.00-5.40); RDW 14.6 % (11.5-14.5); WBC 6.4 10x3/uL (4.8-10.8)
[2020-03-25 13:55] LABS: PLATELET COUNT 177 10x3/uL (130-400)
[2020-03-25 14:07] LABS: BILIRUBIN 2+ (NEGATIVE); KETONE NEGATIVE (NEGATIVE); NITRITE NEGATIVE (NEGATIVE); UROBILINOGEN 8 mg/dL (NORMAL)
[2020-03-25 14:09] LABS: EPITHELIAL CELLS OCC /hpf (0-5)
[2020-03-25 14:10] LABS: BACTERIA FEW /hpf (NEGATIVE); WHITE CELLS - URINE 0-5 /hpf (NEGATIVE)
--- NOTE | 2020-03-25 15:30 | NUR ---
RECEIVED PT TO ROOM AT THIS TIME.
[2020-03-25] MEDS ORDERED: FLORAJEN3 CAPS460 MG PO (23:32)
[2020-03-26] VITALS: BP 180/78
[2020-03-26 01:00] VITALS: BP 180/78; BMI 29.3
[2020-03-26] MEDS ORDERED: REGLAN5 MG PO (01:28)
[2020-03-26 04:00] VITALS: BP 193/103
--- NOTE | 2020-03-26 04:09 | NUR ---
RECEIVED TO FLOOR, ACCOMPANIED BY ER STAFF, VIA WHEELCHAIR. AMBULATES INDEPENDENTLY. A&O X 4. PAIN REPORTED ACROSS UPPER ABDOMEN, 03/10. NO N/V. REPORTS STOMACHE IS BURNING AND NEEDS ANTACID. MILK GIVEN PER REQUEST, CTM.
[2020-03-26 05:15] LABS: BILIRUBIN NEGATIVE (NEGATIVE); KETONE NEGATIVE (NEGATIVE); NITRITE NEGATIVE (NEGATIVE); UROBILINOGEN NORMAL (NORMAL)
[2020-03-26 05:16] LABS: BACTERIA FEW /hpf (NEGATIVE); EPITHELIAL CELLS 0-5 /hpf (0-5); WHITE CELLS - URINE 0-5 /hpf (NEGATIVE)
[2020-03-26 09:23] LABS: BASOPHILS 0.3 % (0-2); EOSINOPHILS 2.2 % (0-7); HEMATOCRIT 34.1 % (36.0-48.0); HEMOGLOBIN 11.5 g/dL (12-16); IMMATURE GRANULOCYTES 0.4 % (0-5); LYMPHOCYTES 11.4 % (15-50); MCH 29.8 pg (26.0-34.0); MCHC 33.7 g/dL (31.0-37.0); MCV 88.3 fL (80.0-100.0); MEAN PLATELET VOLUME 9.3 fL (7.4-10.4); MONOCYTES 9.9 % (2-11); NEUTROPHILS 75.8 % (40-80); PLATELET COUNT 190 10x3/uL (130-400); RBC 3.86 10x6/uL (4.00-5.40); RDW 14.7 % (11.5-14.5); WBC 7.3 10x3/uL (4.8-10.8)
[2020-03-26 09:45] LABS: ALBUMIN 3.6 g/dL (3.4-5.0); ALKALINE PHOSPHATASE 168 U/L (30-120); ALT (SGPT) 53 U/L (10-68); BILIRUBIN - TOTAL 7.42 mg/dL (0.2-1.3); CALC OSMOLALITY 268 mosm/kg (275-300); CALCIUM 9.8 mg/dL (8.5-10.1); CHLORIDE - SERUM 97 mmol/L (98-107); CREATININE - SERUM 0.7 mg/dL (0.6-1.3); GLUCOSE 136 mg/dL (74-106); POTASSIUM - SERUM 3.5 mmol/L (3.5-5.1); SODIUM 134 mmol/L (136-145); UREA NITROGEN 9 mg/dL (7-18); eGFR NON AFRICAN AMERICAN 89 mL/min (90-120)
[2020-03-26 09:56] LABS: INR 1.04 (0.85-1.17); PROTIME 13.6 SECONDS (11.6-15.0)
[2020-03-26 13:11] VITALS: BMI 29.2
[2020-03-26 13:46] VITALS: BP 134/83
[2020-03-26 18:10] VITALS: BP 127/70
--- NOTE | 2020-03-26 18:45 | NUR ---
PATIENT UP AMBULATING IN [place]. IV INTACT. NO COMPLAINTS. CALL LIGHT WITHIN REACH.
[2020-03-26 20:00] VITALS: BP 111/64
--- NOTE | 2020-03-26 20:30 | NUR ---
PT SITTING IN BEDSIDE CHAIR, AOX4. WITHOUT DISTRESS. IV LEFT HAND INFUSING NS @ 75. GAVE HS MEDS. PT SIGNED CONSENTS AT THIS TIME. DENIES OTHER NEEDS. CL IN REACH, WILL CTM
[2020-03-27] VITALS (7 sets, daily range): BP systolic 114–151; BP diastolic 61–82
[2020-03-27 07:02] LABS: HEMATOCRIT 29.9 % (36.0-48.0); HEMOGLOBIN 9.9 g/dL (12-16); MCH 29.7 pg (26.0-34.0); MCHC 33.1 g/dL (31.0-37.0); MCV 89.8 fL (80.0-100.0); MEAN PLATELET VOLUME 10.8 fL (7.4-10.4); PLATELET COUNT 142 10x3/uL (130-400); RBC 3.33 10x6/uL (4.00-5.40); RDW 15.2 % (11.5-14.5); WBC 5.4 10x3/uL (4.8-10.8)
[2020-03-27 07:16] LABS: ALBUMIN 3.4 g/dL (3.4-5.0); ANION GAP 16.8 mmol/L (8-16); BILIRUBIN - TOTAL 8.86 mg/dL (0.2-1.3); CALCIUM 9.4 mg/dL (8.5-10.1); POTASSIUM - SERUM 3.8 mmol/L (3.5-5.1); PROTEIN - SERUM 6.8 g/dL (6.4-8.2)
[2020-03-27 08:04] LABS: LYMPHOCYTES 10 % (15-50); MONOCYTES 1 % (2-11); NEUTROPHILS 87 % (40-80); PLATELET ESTIMATE NORMAL
--- NOTE | 2020-03-27 08:51 | NUR ---
ASSESSMENT PER FLOW SHEET. AM MEDS WITH SIPS OF WATER ONLY. NPO FOR PROCEDURE TODAY. MONITOR FOR NEEDS.AMBULATING IN [place].
--- NOTE | 2020-03-27 15:19 | NUR ---
REMAINS NPO FOR PROCEDURE SOON.FAMILY AT BEDSDE
--- NOTE | 2020-03-27 15:30 | NUR ---
LEFT UNIT VIA BED FOR PROCEDURE
--- NOTE | 2020-03-27 20:00 | NUR ---
PT SITTING UP IN BED WITHOUT DISTRESS, AOX4. SON AT BEDSIDE. PT REQUESTED AND GIVEN CHICKEN BROTH. IV LEFT FA INFUSING NS @ 75. JAUNDICE, ABD DISTENDED. DENIES NAUSEA. ABD PAIN 8/10. WILL GIVE PAIN MED ORDERED. SPOKE WITH PT ABOUT PROCEDURE TOMORROW, PT WANTS TO SPEAK WITH IR BEFORE SIGNING CONSENTS, WANTS TO KNOW MORE ABOUT THE DRAIN THEY WILL BE PLACING. VERBALIZED UNDERSTANDING ABOUT BEING NPO AFTER MN AND TAKING HIBICLENS BATH. DENIES OTHER NEEDS AT THIS TIME. CL IN REACH, WILL CTM
[2020-03-28] VITALS (14 sets, daily range): BP systolic 122–157; BP diastolic 64–84
--- NOTE | 2020-03-28 00:40 | NUR ---
PT STATES PAIN 10/10 IN ABD, GAVE MORPHINE ORDERED. DENIES OTHER NEEDS. CL IN REACH, WILL CTM
--- NOTE | 2020-03-28 03:30 | NUR ---
PT UP WALKING AROUND NURSES STATION
--- NOTE | 2020-03-28 04:51 | NUR ---
PT TAKING HIBICLENS SHOWER AT THIS TIME, WILL CTM
[2020-03-28 06:40] LABS: BASOPHILS 0.2 % (0-2); EOSINOPHILS 3.5 % (0-7); HEMATOCRIT 30.6 % (36.0-48.0); HEMOGLOBIN 10.4 g/dL (12-16); IMMATURE GRANULOCYTES 0.2 % (0-5); LYMPHOCYTES 18.2 % (15-50); MCH 30.5 pg (26.0-34.0); MCV 89.7 fL (80.0-100.0); MEAN PLATELET VOLUME 9.8 fL (7.4-10.4); MONOCYTES 8.7 % (2-11); NEUTROPHILS 69.2 % (40-80); RBC 3.41 10x6/uL (4.00-5.40); WBC 4.8 10x3/uL (4.8-10.8)
[2020-03-28 06:48] LABS: PLATELET COUNT 177 10x3/uL (130-400)
[2020-03-28 07:00] LABS: ALBUMIN 3.5 g/dL (3.4-5.0); ANION GAP 16.2 mmol/L (8-16); BILIRUBIN - DIRECT 9.65 mg/dL (0.00-0.30); BILIRUBIN - TOTAL 10.65 mg/dL (0.2-1.3); CALCIUM 9.3 mg/dL (8.5-10.1); CARBON DIOXIDE 24.2 mmol/L (21.0-32.0); CREATININE - SERUM 1.1 mg/dL (0.6-1.3); POTASSIUM - SERUM 3.4 mmol/L (3.5-5.1); PROTEIN - SERUM 6.9 g/dL (6.4-8.2)
[2020-03-28 07:32] LABS: APTT 25.4 SECONDS (22.8-39.4); INR 1.09 (0.85-1.17)
--- NOTE | 2020-03-28 08:11 | NUR ---
PATIENT SITTING UP IN CHAIR. DENIES NEEDS. IV INFUSING PER MAR. WILL CONTINUE TO ASSESS.
--- NOTE | 2020-03-28 15:40 | NUR ---
Nutrition Follow-up: Failed ERCP yesterday. Diet: NPO (previously Regular diet). NPO for biliary drain by IR today. PO intake: 0-25% x last 6 meals recorded Last BM: 03/26/20 x 2. Wt: 150# (03/26/20) Meds noted: lactulose, NS@75 Labs noted: K 3.4(L), Glu 115(H), Tbili 10.65(H), Dbili 9.65(H), AST 83(H), Alk Phos 172(H). Recommend resume Regular PO diet as soon as medically feasible. Recommend order Ensure TID once PO diet resumed. MD may consider nutrition support as patient appear to continue to be unable to meet estimated nutrition needs via adequate PO intake. RD following.
[2020-03-29 04:00] VITALS: BP 105/51
[2020-03-29 06:20] LABS: BASOPHILS 0.2 % (0-2); EOSINOPHILS 1.1 % (0-7); HEMATOCRIT 31.7 % (36.0-48.0); HEMOGLOBIN 10.5 g/dL (12-16); IMMATURE GRANULOCYTES 0.5 % (0-5); LYMPHOCYTES 15.1 % (15-50); MCH 29.6 pg (26.0-34.0); MCHC 33.1 g/dL (31.0-37.0); MCV 89.3 fL (80.0-100.0); MEAN PLATELET VOLUME 9.7 fL (7.4-10.4); MONOCYTES 8.2 % (2-11); NEUTROPHILS 74.9 % (40-80); PLATELET COUNT 208 10x3/uL (130-400); RBC 3.55 10x6/uL (4.00-5.40); RDW 15.2 % (11.5-14.5); WBC 5.5 10x3/uL (4.8-10.8)
[2020-03-29 06:43] LABS: ALBUMIN 3.2 g/dL (3.4-5.0); ALKALINE PHOSPHATASE 153 U/L (30-120); ALT (SGPT) 42 U/L (10-68); CALC OSMOLALITY 276 mosm/kg (275-300); CALCIUM 8.4 mg/dL (8.5-10.1); CHLORIDE - SERUM 102 mmol/L (98-107); GLUCOSE 109 mg/dL (74-106); POTASSIUM - SERUM 3.3 mmol/L (3.5-5.1); PROTEIN - SERUM 6.4 g/dL (6.4-8.2); SODIUM 138 mmol/L (136-145); UREA NITROGEN 13 mg/dL (7-18); eGFR NON AFRICAN AMERICAN 76 mL/min (90-120)
[2020-03-29 06:45] LABS: CREATININE - SERUM 0.8 mg/dL (0.6-1.3)
--- NOTE | 2020-03-29 07:10 | NUR ---
RECEIVED REPORT. ASSUMED CARE, A&O, UP IN CHAIR, BILIDRAIN TO RIGHT SIDE, CALL LIGHT IN REACH, BED LOWEST POSITION, DENIES NEEDS, IV TO LFA LEAKING, REMOVED TIP INTACT
[2020-03-29 08:00] VITALS: BP 195/98
[2020-03-29 13:26] VITALS: BP 171/85
--- NOTE | 2020-03-29 14:00 | NUR ---
IV INFILTRATED, ATTEMPTED TO REPLACE, PT REFUSES TO BE STUCK AGAIN
[2020-03-29 16:17] VITALS: BP 168/89
--- NOTE | 2020-03-29 17:16 | NUR ---
I have reviewed this patient and I concur with the Shift Assessment completed by the Licensed Practical Nurse today this shift.
[2020-03-29 20:00] VITALS: BP 155/76
[2020-03-30] VITALS: BP 158/82
[2020-03-30 04:00] VITALS: BP 176/85
--- NOTE | 2020-03-30 06:50 | NUR ---
A&O SITTIN UP IN CHAIR. C/O PAIN, PAIN MEDS GIVEN EARLY THIS AM. WILL GIVE AGAIN WHEN AVAILABLE. NO S/S OF ACUTE DISTRESS NOTED. JAUNDICE. ABDOMEN DISTENDED. RIGHT BILIDRAIN, DRESSING C/D/I. IV TO LEFT WRIST, NS WITH 20K+ INFUSING @ 75ML/HR. SITE PATENT WITHOUT REDNESS OR SWELLING. ON TELEMETRY 79 SR. DENIES ANY NEEDS AT THIS TIME. CALL LIGHT IN REACH WILL CONTINUE TO MONITOR.
[2020-03-30 07:03] LABS: BASOPHILS 0.2 % (0-2); EOSINOPHILS 2.9 % (0-7); HEMATOCRIT 30.6 % (36.0-48.0); IMMATURE GRANULOCYTES 0.4 % (0-5); MCH 29.3 pg (26.0-34.0); MCHC 32.7 g/dL (31.0-37.0); MCV 89.7 fL (80.0-100.0); MEAN PLATELET VOLUME 9.3 fL (7.4-10.4); MONOCYTES 10.9 % (2-11); NEUTROPHILS 68.6 % (40-80); PLATELET COUNT 190 10x3/uL (130-400); RBC 3.41 10x6/uL (4.00-5.40); RDW 15.6 % (11.5-14.5); WBC 4.8 10x3/uL (4.8-10.8)
[2020-03-30 07:55] LABS: ALBUMIN 3.1 g/dL (3.4-5.0); ALKALINE PHOSPHATASE 132 U/L (30-120); ALT (SGPT) 40 U/L (10-68); BILIRUBIN - TOTAL 4.97 mg/dL (0.2-1.3); CALC OSMOLALITY 274 mosm/kg (275-300); CALCIUM 8.4 mg/dL (8.5-10.1); CARBON DIOXIDE 22.1 mmol/L (21.0-32.0); CHLORIDE - SERUM 103 mmol/L (98-107); CREATININE - SERUM 0.8 mg/dL (0.6-1.3); GLUCOSE 110 mg/dL (74-106); POTASSIUM - SERUM 3.2 mmol/L (3.5-5.1); PROTEIN - SERUM 6.4 g/dL (6.4-8.2); SODIUM 137 mmol/L (136-145); UREA NITROGEN 12 mg/dL (7-18); eGFR NON AFRICAN AMERICAN 76 mL/min (90-120)
[2020-03-30 09:53] VITALS: BP 176/90
[2020-03-30 12:45] VITALS: BP 146/76
[2020-03-30 16:37] VITALS: BP 151/80
--- NOTE | 2020-03-30 17:24 | NUR ---
I REVIEWED THIS PATIENT AND I AGREE WITH THE SHIFT ASSESSMENT COMPLETED BY THE LEGISLATORS TODAY.
[2020-03-30 23:03] VITALS: BP 160/61
--- NOTE | 2020-03-31 02:30 | NUR ---
PT'S PAIN UNCONTROLLED. PT WINCING AND MOANING, SAYS SHE IS HAVING SHARP SHOOTING PAINS IN RIGHT ABDOMEN. RATES PAIN 9/10 AND CONSTANT. PAGED LJ CASTRO. RECEIVED ORDER FOR MORPHINE 10 MG IV PUSH Q4H PRN AND HOLD ALL PO MORPHINE ORDERS. ADMINISTERED MORPHINE 10 MG IV PUSH TO PT. WILL REASSESS AND CONTINUE TO MONITOR.
[2020-03-31 02:35] VITALS: BP 191/94
[2020-03-31 05:23] LABS: BASOPHILS 0.1 % (0-2); EOSINOPHILS 1.4 % (0-7); HEMATOCRIT 31.6 % (36.0-48.0); HEMOGLOBIN 10.4 g/dL (12-16); IMMATURE GRANULOCYTES 0.4 % (0-5); MCH 29.7 pg (26.0-34.0); MCHC 32.9 g/dL (31.0-37.0); MCV 90.3 fL (80.0-100.0); MEAN PLATELET VOLUME 9.6 fL (7.4-10.4); MONOCYTES 8.7 % (2-11); NEUTROPHILS 79.4 % (40-80); PLATELET COUNT 211 10x3/uL (130-400); RDW 15.2 % (11.5-14.5)
[2020-03-31 05:30] LABS: WBC 7.1 10x3/uL (4.8-10.8)
[2020-03-31 05:45] LABS: CALC OSMOLALITY 269 mosm/kg (275-300); CALCIUM 8.4 mg/dL (8.5-10.1); CARBON DIOXIDE 24.7 mmol/L (21.0-32.0); CHLORIDE - SERUM 101 mmol/L (98-107); CREATININE - SERUM 0.7 mg/dL (0.6-1.3); GLUCOSE 112 mg/dL (74-106); POTASSIUM - SERUM 4.2 mmol/L (3.5-5.1); SODIUM 135 mmol/L (136-145); UREA NITROGEN 10 mg/dL (7-18); eGFR NON AFRICAN AMERICAN 89 mL/min (90-120)
[2020-03-31 07:13] VITALS: BP 157/84
--- NOTE | 2020-03-31 09:10 | NUR ---
ASSESSMENT PER FLOW SHEET. PATIENT IS IN CHAIR. SHE IS WITHOUT SIGNS OF PAIN.CALL LIGHT IN REACH
[2020-03-31 09:31] VITALS: BP 180/82
[2020-03-31 12:34] VITALS: BP 180/93
[2020-03-31 17:59] VITALS: BP 155/70
[2020-03-31 20:00] VITALS: BP 150/77
[2020-04-01 04:00] VITALS: BP 183/92
[2020-04-01 08:25] VITALS: BP 192/97
--- NOTE | 2020-04-01 09:00 | NUR ---
ASSESSMENT PER FLOW SHEET. PATIENT IS WITHOUT SIGNS OF DISTRESS. MEDS ORDERED PER MAR EARLIER.CALL LIGHT IN REACH
[2020-04-01 09:40] LABS: ALBUMIN 2.9 g/dL (3.4-5.0); BILIRUBIN - DIRECT 4.44 mg/dL (0.00-0.30); BILIRUBIN - INDIRECT 0.62 mg/dL (0.00-1.00); BILIRUBIN - TOTAL 5.06 mg/dL (0.2-1.3); PROTEIN - SERUM 6.4 g/dL (6.4-8.2)
[2020-04-01 12:22] VITALS: BP 177/97
--- NOTE | 2020-04-01 13:10 | MORECARE ---
CASE MANAGEMENT DISCHARGE SUMMARY PATIENT: CHERIE RANDALL UNIT: [id number] ADM DATE: 03/25/20 AGE: 64 : 55 SEX: F ROOM/BED: D.2214 AUTHOR: DRAKE MORENO PHYSICIAN: REFERRING PHYSICIAN: YI JADE MD DATE OF SERVICE: 04/01/20 Discharge Plan Patient Name: [facility]ALL [facility] [facility] 1955 Planned Disposition: Home with Home Health Anticipated Discharge Date: Discharge Date: Expected LOS: Initial Reviewer: [email or web address] Initial Review Date: 03/26/2020 Generated: 04/01/20 2:09 pm DCPIA - Discharge Planning Initial Assessment Updated by [email or web address]: Adelaide Prakash on 04/01/20 1:06 pm * How many steps to enter\exit or inside your home? * PCP JAVIER JERONIMO * Pharmacy [facility] * Preadmission Environment Home with Family * ADLs Independent * Equipment Cane * List name and contact numbers for known caregivers / representatives who currently or will assist patient after discharge: PORFIRIO RANDALL [phone] * Verbal permission to speak to the caregivers and representatives has been obtained from the patient. N/A * Community resources currently utilized None * Additional services required to return to the preadmission environment? Yes * Can the patient safely return to the preadmission environment? Yes * Has this patient been hospitalized within the prior 30 days at any hospital? Yes Patient Name: CHERIE RANDALL Page [phone] at 1310 All edits/amendments must be made on the electronic document DICTATION DATE: 04/01/20 1309 STOREKEEPER ENGINEERING: JANNA 04/01/20 1309 RPT#: [id number] DC DATE: STATUS: ADM IN [facility] [address] [place] [address] END OF REPORT
--- NOTE | 2020-04-01 13:20 | MORECARE ---
CASE MANAGEMENT DISCHARGE SUMMARY PATIENT: CHERIE RANDALL UNIT: [id number] ADM DATE: 03/25/20 AGE: 64 : 55 SEX: F ROOM/BED: D.2214 AUTHOR: DRAKE MORENO PHYSICIAN: REFERRING PHYSICIAN: YI JADE MD DATE OF SERVICE: 04/01/20 Discharge Plan Patient Name: CHERIE RANDALL Facility: [facility]:[place] : 1955 Planned Disposition: Home with Home Health Anticipated Discharge Date: Discharge Date: Expected LOS: Initial Reviewer: [email or web address] Initial Review Date: 03/26/2020 Generated: 04/01/20 2:20 pm Comments DCP- Discharge Planning Updated by [email or web address]: Adelaide Prakash on 04/01/20 12:[address] Patient Name: CHERIE RANDALL Admission Status: ER Accout number: [id number] Admission Date: 03-25-2020 : 1955 Admission Diagnosis:DIFFUSE LARGE B-CELL LYMPHOMA, UNSPECIFIED SITE Attending: YI JADE Current LOS: 7 Anticipated DC Date: Planned Disposition: Home with Home Health Primary Insurance: MEDICAID [place] Discharge Planning Comments: CM met with patient to complete initial dc planning assessment. CM educated patient on the CM role and verbal consent given by patient to complete assessment. Patient lives at home with her where she was independent with her care. At discharge patient plans to return home and feels this is a & felt that this was a safe discharge. She did state that she may go to her mobile home ( [address] [place] [address] [place] [address]) CM discussed availability of home health, rehab services, and medical equipment. She has a cane I think she may need a walker, she appears very weak. I also encouraged home health this time and she was in agreement. ALBERT with [place] . I offered to send a referral to a in home care place to see if she might qualify. She did not want that she said she has plenty of friends who can help her. . She said that she has great friends. Patient denied known discharge needs at this time. CM will continue to follow and will assist as needed with dc plans/needs. Spa Host: Adelaide Prakash DCPIA - Discharge Planning Initial Assessment Updated by [email or web address]: Adelaide Prakash on 04/01/20 1:06 pm * How many steps to enter\exit or inside your home? * PCP JAVIER JERONIMO * Pharmacy [facility] * Preadmission Environment Home with Family * ADLs Independent * Equipment Cane * List name and contact numbers for known caregivers / representatives who currently or will assist patient after discharge: PORFIRIO RANDALL [phone] * Verbal permission to speak to the caregivers and representatives has been obtained from the patient. N/A * Community resources currently utilized None * Additional services required to return to the preadmission environment? Yes * Can the patient safely return to the preadmission environment? Yes * Has this patient been hospitalized within the prior 30 days at any hospital? Yes Coverage Notice Reviewer: [email or web address] - Adelaide Prakash Notice Issued Date-Time: 04/01/2020 13:00 Notice Type: Patient Choice Letter Notice Delivered To: Patient Relationship to Patient: Teacher Specialist Name: Delivery Method: HAND - Hand Delivered Patricia Days: Prior Verbal Notification: Recipient Understood Notice: Yes Recipient Signature: Yes Med Rec Note Co-signed by Attending: Coverage Notice Comment: demi alberto Last DP export: 04/01/20 12:10 pm Patient Name: CHERIE RANDALL Page [phone] at 1320 All edits/amendments must be made on the electronic document DICTATION DATE: 04/01/20 1320 CERTIFIED WELLNESS PROGRAM COORDINATOR: JANNA 04/01/20 1320 RPT#: [id number] DC DATE: STATUS: ADM IN [facility] [address] [place] [address] END OF REPORT
--- NOTE | 2020-04-01 13:28 | MORECARE ---
CASE MANAGEMENT DISCHARGE SUMMARY PATIENT: CHERIE RANDALL UNIT: [id number] ADM DATE: 03/25/20 AGE: 64 : 55 SEX: F ROOM/BED: D.2214 AUTHOR: DRAKE MORENO PHYSICIAN: REFERRING PHYSICIAN: YI JADE MD DATE OF SERVICE: 04/01/20 Discharge Plan Patient Name: CHERIE RANDALL Facility: [facility]:[place] : 1955 Planned Disposition: Home with Home Health Anticipated Discharge Date: Discharge Date: Expected LOS: Initial Reviewer: [email or web address] Initial Review Date: 03/26/2020 Generated: 04/01/20 2:27 pm Comments DCP- Discharge Planning Updated by [email or web address]: Adelaide Prakash on 04/01/20 12:[address] Patient Name: CHERIE RANDALL Admission Status: ER Accout number: [id number] Admission Date: 03-25-2020 : 1955 Admission Diagnosis:DIFFUSE LARGE B-CELL LYMPHOMA, UNSPECIFIED SITE Attending: YI JADE Current LOS: 7 Anticipated DC Date: Planned Disposition: Home with Home Health Primary Insurance: MEDICAID [place] Discharge Planning Comments: CM met with patient to complete initial dc planning assessment. CM educated patient on the CM role and verbal consent given by patient to complete assessment. Patient lives at home with her where she was independent with her care. At discharge patient plans to return home and feels this is a & felt that this was a safe discharge. She did state that she may go to her [place] home ( [address] [place] [address] [place] [address]) CM discussed availability of home health, rehab services, and medical equipment. She has a cane I think she may need a walker, she appears very weak. I also encouraged home health this time and she was in agreement. ALBERT with [place] . I offered to send a referral to a in home care place to see if she might qualify. She did not want that she said she has plenty of friends who can help her. . She said that she has great friends. Patient denied known discharge needs at this time. CM will continue to follow and will assist as needed with dc plans/needs. Crown Ceramist: Adelaide Prakash DCPIA - Discharge Planning Initial Assessment Updated by [email or web address]: Adelaide Prakash on 04/01/20 1:06 pm * How many steps to enter\exit or inside your home? * PCP JAVIER JERONIMO * Pharmacy [facility] * Preadmission Environment Home with Family * ADLs Independent * Equipment Cane * List name and contact numbers for known caregivers / representatives who currently or will assist patient after discharge: PORFIRIO RANDALL [phone] * Verbal permission to speak to the caregivers and representatives has been obtained from the patient. N/A * Community resources currently utilized None * Additional services required to return to the preadmission environment? Yes * Can the patient safely return to the preadmission environment? Yes * Has this patient been hospitalized within the prior 30 days at any hospital? Yes External Providers External Provider: [facility] Next Contact Date: Service Request Date: Service Type: Resolution: Reviewer: Comments: Coverage Notice Reviewer: [email or web address] - Adelaide Prakash Notice Issued Date-Time: 04/01/2020 13:00 Notice Type: Patient Choice Letter Notice Delivered To: Patient Relationship to Patient: Pole Shaver Name: Delivery Method: HAND - Hand Delivered Patricia Days: Prior Verbal Notification: Recipient Understood Notice: Yes Recipient Signature: Yes Med Rec Note Co-signed by Attending: Coverage Notice Comment: emmy COOK export: 04/01/20 12:20 pm Patient Name: CHERIE RANDALL Page [phone] at 1328 All edits/amendments must be made on the electronic document DICTATION DATE: 04/01/20 1327 BPM ARCHITECT: JANNA 04/01/20 1327 RPT#: [id number] DC DATE: STATUS: ADM IN [facility] [address] [facility] [place] [address] END OF REPORT
[2020-04-01 20:00] VITALS: BP 186/89
[2020-04-02] VITALS: BP 153/87
--- NOTE | 2020-04-02 01:07 | NUR ---
1944) REC'D. WALKING ROUNDS CHGE. OF SHIFT.SITTING UP IN CHAIR. EYES CLOSED RESP.DEEP AND EVEN.WILL CONTINUE TO MONITOR FOR ANY CHGES. AND FOLLOW PLAN OF CARE.
--- NOTE | 2020-04-02 03:50 | NUR ---
I have reviewed this patient and I concur with the Shift Assessment completed by the Licensed Practical Nurse today this shift.
[2020-04-02 04:00] VITALS: BP 183/89
[2020-04-02 05:31] LABS: BASOPHILS 0.2 % (0-2); EOSINOPHILS 2.8 % (0-7); HEMATOCRIT 30.7 % (36.0-48.0); HEMOGLOBIN 10.1 g/dL (12-16); IMMATURE GRANULOCYTES 0.5 % (0-5); LYMPHOCYTES 14.7 % (15-50); MCH 29.6 pg (26.0-34.0); MCHC 32.9 g/dL (31.0-37.0); MEAN PLATELET VOLUME 9.2 fL (7.4-10.4); MONOCYTES 10.2 % (2-11); NEUTROPHILS 71.6 % (40-80); PLATELET COUNT 223 10x3/uL (130-400); RBC 3.41 10x6/uL (4.00-5.40); WBC 5.8 10x3/uL (4.8-10.8)
[2020-04-02 05:32] LABS: INR 1.52 (0.85-1.17); PROTIME 18.1 SECONDS (11.6-15.0)
[2020-04-02 05:54] LABS: ALBUMIN 3.1 g/dL (3.4-5.0); ALKALINE PHOSPHATASE 98 U/L (30-120); ALT (SGPT) 38 U/L (10-68); BILIRUBIN - DIRECT 4.02 mg/dL (0.00-0.30); BILIRUBIN - INDIRECT 0.56 mg/dL (0.00-1.00); BILIRUBIN - TOTAL 4.58 mg/dL (0.2-1.3); CALC OSMOLALITY 268 mosm/kg (275-300); CALCIUM 8.6 mg/dL (8.5-10.1); CARBON DIOXIDE 23.2 mmol/L (21.0-32.0); CHLORIDE - SERUM 100 mmol/L (98-107); CREATININE - SERUM 0.7 mg/dL (0.6-1.3); GLUCOSE 97 mg/dL (74-106); POTASSIUM - SERUM 3.7 mmol/L (3.5-5.1); PROTEIN - SERUM 6.5 g/dL (6.4-8.2); SODIUM 135 mmol/L (136-145); UREA NITROGEN 9 mg/dL (7-18); eGFR NON AFRICAN AMERICAN 89 mL/min (90-120)
--- NOTE | 2020-04-02 08:00 | NUR ---
ASSESSMENT PER FLOW SHEET. PATIENT VERY SLEEPY THIS AM. SHE HAD PAIN MEDS BY NIGHT NURSE EDER. MONITOR FOR NEEDS
--- NOTE | 2020-04-02 09:15 | NUR ---
CALL TO PHARMACY FOR AP,SPOKE WITH
[2020-04-02 09:58] VITALS: BP 203/101
--- NOTE | 2020-04-02 11:13 | NUR ---
PREMEDS ORDERED. PATIENT LEFT UNIT VIA BED FOR PROCEDURE.
--- NOTE | 2020-04-02 12:37 | NUR ---
BACK FROM IR VIA BED. PATIENT IS WITHOUT DISTRESS
[2020-04-02 18:06] VITALS: BP 119/101
--- NOTE | 2020-04-02 18:48 | NUR ---
REMAINS WITHOUT DISTRESS.WANTS PAIN MEDS WHEN TIME. CONT PLAN OF CARE
[2020-04-02 20:00] VITALS: BP 171/88
[2020-04-03] VITALS: BP 186/96
[2020-04-03 04:00] VITALS: BP 163/81
[2020-04-03 06:32] LABS: ALBUMIN 2.9 g/dL (3.4-5.0); ALKALINE PHOSPHATASE 88 U/L (30-120); ALT (SGPT) 34 U/L (10-68); BILIRUBIN - TOTAL 4.51 mg/dL (0.2-1.3); CALC OSMOLALITY 265 mosm/kg (275-300); CALCIUM 8.5 mg/dL (8.5-10.1); CARBON DIOXIDE 22.6 mmol/L (21.0-32.0); CHLORIDE - SERUM 99 mmol/L (98-107); CREATININE - SERUM 0.6 mg/dL (0.6-1.3); GLUCOSE 118 mg/dL (74-106); POTASSIUM - SERUM 3.8 mmol/L (3.5-5.1); PROTEIN - SERUM 6.3 g/dL (6.4-8.2); SODIUM 133 mmol/L (136-145); UREA NITROGEN 10 mg/dL (7-18); eGFR NON AFRICAN AMERICAN > 90 mL/min (90-120)
[2020-04-03 06:46] LABS: BASOPHILS 0.2 % (0-2); EOSINOPHILS 1.9 % (0-7); HEMATOCRIT 29.6 % (36.0-48.0); IMMATURE GRANULOCYTES 0.3 % (0-5); LYMPHOCYTES 13.5 % (15-50); MCH 30.1 pg (26.0-34.0); MCHC 33.8 g/dL (31.0-37.0); MCV 89.2 fL (80.0-100.0); MEAN PLATELET VOLUME 9.3 fL (7.4-10.4); MONOCYTES 9.6 % (2-11); NEUTROPHILS 74.5 % (40-80); PLATELET COUNT 210 10x3/uL (130-400); RBC 3.32 10x6/uL (4.00-5.40); RDW 14.9 % (11.5-14.5); WBC 5.9 10x3/uL (4.8-10.8)
[2020-04-03 09:00] VITALS: BP 203/97
[2020-04-03 13:13] VITALS: BP 175/81
--- NOTE | 2020-04-03 16:30 | NUR ---
PATIENT DRAIN FLUSHED WITH SALINE ORDERED. NO RESISTANCE NOTED. PATIENT SITTING UP IN BED WITH IV INTACT. NO COMPLAINTS. CALL LIGHT WITHIN REACH.
[2020-04-03 17:17] VITALS: BP 164/81
[2020-04-03 20:00] VITALS: BP 192/86
--- NOTE | 2020-04-03 20:00 | NUR ---
PATIENT SITTING UP IN CHAIR. NO S/S OF ACUTE DISTRESS. PATIENT C/O PAIN, AND KNOWS THAT IT WASN'T TIME FOR PAIN MEDICINE QUITE YET. DILAUDID WILL BE GIVEN WHEN IT IS TIME. PATIENT HAS RIGHT HAND, 1/2 NORMAL SALINE WITH 20 MEQ K @ 75 ML/HR. IV IS PATENT WITHOUT REDNESS, SWELLING, OR TENDERNESS. PATIENT HAS A RIGHT BILIDRAIN. PATIENT IS JUANDICED. PATIENT LEGS ARE SWOLLEN SLIGHTLY. CALL LIGHT WITHIN REACH. WILL CONTINUE TO MONITOR.
[2020-04-04] VITALS: BP 111/57
[2020-04-04 04:00] VITALS: BP 190/89
--- NOTE | 2020-04-04 04:37 | NUR ---
I have reviewed this patient and I concur with the Shift Assessment completed by the Licensed Practical Nurse today this shift.
[2020-04-04 04:58] LABS: HEMATOCRIT 29.5 % (36.0-48.0); HEMOGLOBIN 9.9 g/dL (12-16); LYMPHOCYTES 14.3 % (15-50); MCH 30.4 pg (26.0-34.0); MCHC 33.6 g/dL (31.0-37.0); MCV 90.5 fL (80.0-100.0); MEAN PLATELET VOLUME 9.1 fL (7.4-10.4); NEUTROPHILS 73.3 % (40-80); PLATELET COUNT 190 10x3/uL (130-400); RBC 3.26 10x6/uL (4.00-5.40); RDW 14.8 % (11.5-14.5)
[2020-04-04 05:00] LABS: WBC 4.4 10x3/uL (4.8-10.8)
[2020-04-04 05:17] LABS: ALKALINE PHOSPHATASE 90 U/L (30-120); ALT (SGPT) 35 U/L (10-68); BILIRUBIN - TOTAL 4.03 mg/dL (0.2-1.3); CALC OSMOLALITY 262 mosm/kg (275-300); CALCIUM 8.2 mg/dL (8.5-10.1); CARBON DIOXIDE 20.8 mmol/L (21.0-32.0); CHLORIDE - SERUM 99 mmol/L (98-107); CREATININE - SERUM 0.7 mg/dL (0.6-1.3); GLUCOSE 105 mg/dL (74-106); POTASSIUM - SERUM 3.8 mmol/L (3.5-5.1); PROTEIN - SERUM 6.5 g/dL (6.4-8.2); SODIUM 132 mmol/L (136-145); UREA NITROGEN 8 mg/dL (7-18); eGFR NON AFRICAN AMERICAN 89 mL/min (90-120)
[2020-04-04 09:45] VITALS: BP 192/93
[2020-04-04 12:54] VITALS: BP 159/80
[2020-04-04 17:35] VITALS: BP 145/75
--- NOTE | 2020-04-04 20:00 | NUR ---
PATIENT RESTING IN CHAIR WATCHING TV. NO S/S OF ACUTE DISTRESS. PATIENT C/O PAIN AND ZANAFLEX WILL BE GIVEN. PATIENT HAS A RIGHT HAND IV, 1/2 NORMAL SALINE WITH 20 MEQ OF K @ 75 ML/HR. IV IS PATENT WITHOUT REDNESS, SWELLING, OR TENDERNESS. PATIENT IS JAUNDICED. PATIENT LEGS ARE SWOLLEN. PATIENT HAS RIGHT SIDE BILIDRAIN. CALL LIGHT WITHIN REACH. WILL CONTINUE TO MONITOR.
[2020-04-04 22:04] VITALS: BP 166/92
[2020-04-05 03:09] VITALS: BP 123/77
[2020-04-05 04:00] VITALS: BP 124/78
--- NOTE | 2020-04-05 05:41 | NUR ---
I have reviewed this patient and I concur with the Shift Assessment completed by the Licensed Practical Nurse today this shift.
[2020-04-05 07:28] LABS: BASOPHILS 0.2 % (0-2); EOSINOPHILS 1.7 % (0-7); HEMATOCRIT 28.4 % (36.0-48.0); HEMOGLOBIN 9.3 g/dL (12-16); IMMATURE GRANULOCYTES 0.2 % (0-5); LYMPHOCYTES 14.5 % (15-50); MCH 29.6 pg (26.0-34.0); MCHC 32.7 g/dL (31.0-37.0); MCV 90.4 fL (80.0-100.0); MEAN PLATELET VOLUME 9.7 fL (7.4-10.4); MONOCYTES 10.8 % (2-11); NEUTROPHILS 72.6 % (40-80); PLATELET COUNT 171 10x3/uL (130-400); RBC 3.14 10x6/uL (4.00-5.40); WBC 4.1 10x3/uL (4.8-10.8)
[2020-04-05 07:46] LABS: CALC OSMOLALITY 267 mosm/kg (275-300); CALCIUM 8.4 mg/dL (8.5-10.1); CARBON DIOXIDE 21.9 mmol/L (21.0-32.0); CHLORIDE - SERUM 100 mmol/L (98-107); CREATININE - SERUM 0.6 mg/dL (0.6-1.3); GLUCOSE 114 mg/dL (74-106); POTASSIUM - SERUM 4.3 mmol/L (3.5-5.1); SODIUM 134 mmol/L (136-145); UREA NITROGEN 9 mg/dL (7-18); eGFR NON AFRICAN AMERICAN > 90 mL/min (90-120)
--- NOTE | 2020-04-05 07:55 | NUR ---
PATIENT SITTING UP IN CHAIR HAD PAIN MEDICATION BEFORE SHIFT CHANGE, NO S/SX OF DISTRESS. IV IN RT HAND PATENT, PT ON ROOM AIR, LUNGS CLEAR TO AUSCULATION. SWELLING IN BILATERAL LOWER EXTREMITIES. NO NEEDS VOICED. CALL CARRASCO IN REACH. CONTINUE WITH PLAN OF CARE
[2020-04-05 10:26] VITALS: BP 145/90
[2020-04-05 14:48] VITALS: BP 122/76
--- NOTE | 2020-04-05 16:08 | NUR ---
SITTING UP IN CHAIR.CALL LIGHT IN REACH
[2020-04-05 17:35] VITALS: BP 139/76
--- NOTE | 2020-04-05 19:15 | NUR ---
PATIENT ALERT AND ORIENTED SITTING UP AT BEDSIDE WHEN ENTERING THE ROOM. PATIENT IS COMPLAINING OF PAIN. REQUESTS DILAUDID. PULLED UP PATIENT CHART AND PAIN MEDICATION IS DC'D AT THIS TIME. PROVIDED PATIENT WITH SUPPORT. WHEN NEXT DOSE IS DUE (1934) AND THAT THIS NURSE WILL PAGE THE ROUGH ROUNDER PROVIDER.
--- NOTE | 2020-04-05 19:20 | NUR ---
PAGEVern SHIPMAN APRN FOR DR. BARAKAT.
--- NOTE | 2020-04-05 19:46 | NUR ---
RECEIVED CALL BACK FROM RAMONITA GIORDANO APRN AND RECEIVED ORDERS TO RESTART DILAUDID 2MG IV PUSH Q 4. NO FURTHER ORDERS AT THIS TIME.
[2020-04-05 22:21] VITALS: BP 149/80
--- NOTE | 2020-04-05 23:45 | NUR ---
ADMINISTERED PAIN MEDICATION PER ORDER FOR PAIN RATING OF "8/10". PATIENT TOLERATED WELL. DENIES FURTHER NEEDS AT THIS TIME. CALL LIGHT REMAINS CLOSE. CPOC.
[2020-04-06 01:07] VITALS: BP 147/74
[2020-04-06 06:49] VITALS: BP 141/65
--- NOTE | 2020-04-06 07:43 | NUR ---
SITTING UP IN CHAIR AT BEDSIDE, EYES CLOSED, EASILY AROUSED TO SPEECH. ALERT AND ORIENTED WITH NO CURRENT S/S OF DISTRESS. IV LOCATED TO RIGHT HAND 1/2NS W/20MEQ @ 75ML/HR. BILIDRAIN PRESENT. DENIES CURRENT NEEDS, WILL CONT TO MONITOR.
[2020-04-06 09:03] VITALS: BP 176/86
[2020-04-06 12:53] VITALS: BP 158/72
--- NOTE | 2020-04-06 15:25 | NUR ---
IV INFILTRATED, REMOVED WITH CATHETER TIP INTACT. TRIED TO REINSERT WITH 2 FAILED ATTEMPTS, ANOTHER NURSE IS CURRENTLY TRYING TO RESTART. WILL CONT TO MONITOR.
--- NOTE | 2020-04-06 16:56 | NUR ---
IV PLACED TO LEFT FOREARM.
[2020-04-06 17:31] VITALS: BP 177/74
--- NOTE | 2020-04-06 19:30 | NUR ---
PATIENT ALERT AND ORIENTED SITTING IN CHAIR. PATIENT REQUESTING PAIN MEDICAITON. PULLED EMAR TO SHOW PATIENT THAT MEDICATION IS NOT DUE UNTIL 2049. PATIENT REQUESTS ZANAFLEX AT THIS TIME. ASSESSMENT PERFORMED. BILI DRAIN DRESSING SATURATED. REAPPLIED NEW DRESSING. ATTEMPTED TO PUT BACK INTO STAT LOCK BUT PATIENT COMPLAINS THAT IT HURT, SO SECURED LINE WITH TAPE. PROVIDED EDUCATION TO PATIENT ABOUT IMPORTANCE OF BILI DRAIN AND BE CAREFUL WHEN AMBULATING TO THE BATHROOM. PATIENT VERBALIZES UNDERSTANDING. DENIES FURTHER NEEDS AT THIS TIME. CALL LIGHT CLOSE. CPOC.
--- NOTE | 2020-04-06 19:40 | NUR ---
ADMINISTERED ZANAFLEX PER REQUEST, PER ORDER. CPOC.
--- NOTE | 2020-04-06 20:50 | NUR ---
ADMINISTERED HS MEDICATIONS. REMOVED PREVIOUS DURAGESIC PATCH FROM THE RIGHT SHOULDER. APPLIED NEW PATCH TO THE LEFT SHOULDER. DENIES FURTHER NEEDS AT THIS TIME. CALL LIGHT CLOSE. CPOC.
[2020-04-06 23:19] VITALS: BP 166/81
--- NOTE | 2020-04-06 23:25 | NUR ---
RESTING WITH NO SIGNS OR SYMPTOMS OF DISTRESS AT THIS TIME. BILI DRAIN CONTINUES TO DRAIN THICK, YELLOW/BROWN CONTENTS. DENIES NEEDS. CPOC.
[2020-04-07 03:24] VITALS: BP 148/77
[2020-04-07 04:36] LABS: BASOPHILS 0.2 % (0-2); EOSINOPHILS 2.5 % (0-7); HEMATOCRIT 30.6 % (36.0-48.0); HEMOGLOBIN 10.1 g/dL (12-16); IMMATURE GRANULOCYTES 0.5 % (0-5); LYMPHOCYTES 13.7 % (15-50); MCH 29.7 pg (26.0-34.0); MEAN PLATELET VOLUME 9.3 fL (7.4-10.4); NEUTROPHILS 73.1 % (40-80); RDW 14.6 % (11.5-14.5); WBC 4.4 10x3/uL (4.8-10.8)
[2020-04-07 04:46] LABS: PLATELET COUNT 216 10x3/uL (130-400)
[2020-04-07 04:55] LABS: ALKALINE PHOSPHATASE 80 U/L (30-120); ALT (SGPT) 42 U/L (10-68); BILIRUBIN - TOTAL 3.75 mg/dL (0.2-1.3); CALC OSMOLALITY 263 mosm/kg (275-300); CALCIUM 8.8 mg/dL (8.5-10.1); CARBON DIOXIDE 21.4 mmol/L (21.0-32.0); CHLORIDE - SERUM 100 mmol/L (98-107); CREATININE - SERUM 0.7 mg/dL (0.6-1.3); GLUCOSE 103 mg/dL (74-106); PROTEIN - SERUM 6.5 g/dL (6.4-8.2); SODIUM 133 mmol/L (136-145); UREA NITROGEN 7 mg/dL (7-18); eGFR NON AFRICAN AMERICAN 89 mL/min (90-120)
[2020-04-07 06:40] VITALS: BP 151/80
--- NOTE | 2020-04-07 07:15 | NUR ---
RECEIVED PATIENT FROM KUMAR CLEARY. A&O SITTING UP IN CHAIR. NO C/O PAIN. NO S/S OF ACUTE DISTRESS NOTED. DENIES ANY NEEDS AT THIS TIME. CALL LIGHT IN REACH. WILL CONTINUE TO MONITOR.
[2020-04-07 09:22] VITALS: BP 175/89
[2020-04-07 13:05] VITALS: BP 176/89
--- NOTE | 2020-04-07 14:55 | NUR ---
I have reviewed this patient and I concur with the Shift Assessment completed by the Licensed Practical Nurse today this shift.
[2020-04-07 17:54] VITALS: BP 177/86
--- NOTE | 2020-04-07 18:30 | NUR ---
A&O SITTING UP IN CHAIR. C/O PAIN, GAVE DILAUDID 2MG IV FOR A PAIN 04/10. NO S/S OF ACUTE DISTRESS NOTED. DENIES ANY NEEDS AT THIS TIME. CALL LIGHT IN REACH. WILL CONTINUE TO MONITOR.
--- NOTE | 2020-04-07 19:00 | NUR ---
PATIENT SITTING UP IN CHAIR. STATES SHE JUST RECEIVED PAIN MEDICINE. ALERT AND ORIENTED. DENIES NEEDS AT THIS TIME. ASSESSMENT PERFORMED. CHECKED BILI DRAIN, APPLIED NEW DRESSING. DRAINING GREEN DISCHARGE. CALL LIGHT CLOSE. CPOC.
[2020-04-07 20:00] VITALS: BP 126/69
[2020-04-08] VITALS: BP 150/78
[2020-04-08 04:00] VITALS: BP 144/83
--- NOTE | 2020-04-08 08:45 | NUR ---
PATIENT SITTING UP IN CHAIR WITH NO COMPLAINTS OR SIGN SO OF DISTRESS. IV INTACT. CALL LIGHT WITHIN REACH.
[2020-04-08 08:55] VITALS: BP 158/85
[2020-04-08 11:17] VITALS: Ht 152.4 cm; Wt 68.0 kg
[2020-04-08 13:19] VITALS: BP 161/91
--- NOTE | 2020-04-08 14:30 | NUR ---
PATIENT IN BED WITH IV INTACT. NO COMPLAINTS OR SIGNS OF DISTRESS. WAITING TO GO TO OR.
--- NOTE | 2020-04-08 14:37 | NUR ---
Nutrition follow-up: Pt NPO for port placement today Chemotherapy to begin Labs reviewed Pt had been receiving a low sodium diet wiht po intake ~25-50% of meals No new wt to assess Please weigh pt RDN following.
[2020-04-08 17:06] VITALS: BP 186/74
--- NOTE | 2020-04-08 18:45 | NUR ---
PATIENT SITTING UP IN BED WITH IV INTACT. NO COMPLAINTS OR SIGNS OF DISTRESS. DRAIN INTACT. EMPTIED. FLUSHED EARLIER TODAY WITH NS ORDERED. CALL LIGHT WITHIN REACH.
[2020-04-08 20:00] VITALS: BP 158/80
[2020-04-09] VITALS: BP 159/82
--- NOTE | 2020-04-09 03:59 | NUR ---
I have reviewed this patient and I concur with the Shift Assessment completed by the Licensed Practical Nurse today this shift.
[2020-04-09 04:00] VITALS: BP 157/75
[2020-04-09 05:17] LABS: BASOPHILS 0.3 % (0-2); EOSINOPHILS 2.6 % (0-7); HEMATOCRIT 29.6 % (36.0-48.0); HEMOGLOBIN 9.7 g/dL (12-16); IMMATURE GRANULOCYTES 0.3 % (0-5); LYMPHOCYTES 18.9 % (15-50); MCH 29.2 pg (26.0-34.0); MCHC 32.8 g/dL (31.0-37.0); MCV 89.2 fL (80.0-100.0); MEAN PLATELET VOLUME 9.6 fL (7.4-10.4); MONOCYTES 12.3 % (2-11); NEUTROPHILS 65.6 % (40-80); PLATELET COUNT 190 10x3/uL (130-400); RBC 3.32 10x6/uL (4.00-5.40); RDW 14.5 % (11.5-14.5)
[2020-04-09 05:31] LABS: ALBUMIN 2.9 g/dL (3.4-5.0); ALKALINE PHOSPHATASE 79 U/L (30-120); ALT (SGPT) 59 U/L (10-68); BILIRUBIN - TOTAL 3.64 mg/dL (0.2-1.3); CALC OSMOLALITY 263 mosm/kg (275-300); CALCIUM 8.9 mg/dL (8.5-10.1); CARBON DIOXIDE 23.4 mmol/L (21.0-32.0); CHLORIDE - SERUM 100 mmol/L (98-107); CREATININE - SERUM 0.7 mg/dL (0.6-1.3); GLUCOSE 99 mg/dL (74-106); PROTEIN - SERUM 6.4 g/dL (6.4-8.2); SODIUM 133 mmol/L (136-145); UREA NITROGEN 7 mg/dL (7-18); eGFR NON AFRICAN AMERICAN 89 mL/min (90-120)
--- NOTE | 2020-04-09 06:50 | NUR ---
A&O SITTING UP IN THE CHAIR. JUST GOT OUT OF SHOWER. C/O PAIN, WILL GIVE PAIN MEDS WHEN AVAILABLE AGAIN. NO S/S OF ACUTE DISTRESS NOTED. SCHEDULED FOR A PORT PLACEMENT TODAY TO START CHEMO. IV TO LEFT FOREARM, 1/2 NS WITH 20K+ INFUSING @ 75ML/HR. SITE PATENT WITHOUT REDNESS OR SWELLING. BILIDRAIN TO RUQ. BILATERAL LOWER EXTREMITY EDEMA PRESENT, GENERALIZED. ON TELEMETRY SR 82. DENIES ANY NEEDS AT THIS TIME. CALL LIGHT IN REACH. WILL CONTINUE TO MONITOR.
--- NOTE | 2020-04-09 07:44 | NUR ---
GAVE PATIENT 2MG DILAUDID IV PUSH FOR PAIN 03/10.
[2020-04-09 09:18] VITALS: BP 152/83
[2020-04-09 12:27] VITALS: BP 153/78
--- NOTE | 2020-04-09 12:40 | NUR ---
I have reviewed this patient and I concur with the Shift Assessment completed by the Licensed Practical Nurse today this shift.
[2020-04-09 18:01] VITALS: BP 123/72
--- NOTE | 2020-04-09 18:39 | NUR ---
A&O RESTING IN BED WITH EYES OPEN. NO C/O PAIN. NO S/S OF ACUTE DISTRESS NOTED. CALL LIGHT IN REACH. DENIES ANY NEEDS. WILL CONTINUE TO MONITOR.
[2020-04-09 20:00] VITALS: BP 147/85
[2020-04-10] VITALS (7 sets, daily range): BP systolic 125–168; BP diastolic 72–84
--- NOTE | 2020-04-10 02:34 | NUR ---
I have reviewed this patient and I concur with the Shift Assessment completed by the Licensed Practical Nurse today this shift.
[2020-04-10 06:27] LABS: BASOPHILS 0.2 % (0-2); EOSINOPHILS 0.8 % (0-7); HEMATOCRIT 28.2 % (36.0-48.0); HEMOGLOBIN 9.3 g/dL (12-16); IMMATURE GRANULOCYTES 0.4 % (0-5); MCH 29.3 pg (26.0-34.0); MEAN PLATELET VOLUME 9.1 fL (7.4-10.4); MONOCYTES 8.9 % (2-11); NEUTROPHILS 78.7 % (40-80); RBC 3.17 10x6/uL (4.00-5.40); RDW 14.6 % (11.5-14.5)
[2020-04-10 06:28] LABS: PLATELET COUNT 232 10x3/uL (130-400); WBC 5.3 10x3/uL (4.8-10.8)
[2020-04-10 06:43] LABS: ALBUMIN 2.9 g/dL (3.4-5.0); ALKALINE PHOSPHATASE 77 U/L (30-120); ALT (SGPT) 54 U/L (10-68); CALC OSMOLALITY 270 mosm/kg (275-300); CALCIUM 8.5 mg/dL (8.5-10.1); CARBON DIOXIDE 22.2 mmol/L (21.0-32.0); CHLORIDE - SERUM 101 mmol/L (98-107); CREATININE - SERUM 0.8 mg/dL (0.6-1.3); GLUCOSE 133 mg/dL (74-106); PROTEIN - SERUM 6.5 g/dL (6.4-8.2); SODIUM 135 mmol/L (136-145); eGFR NON AFRICAN AMERICAN 76 mL/min (90-120)
[2020-04-10 06:44] LABS: UREA NITROGEN 9 mg/dL (7-18)
--- NOTE | 2020-04-10 06:45 | NUR ---
A&O SITTING UP IN CHAIR. NO C/O PAIN. NO S/S OF ACUTE DISTRESS NOTED. LEFT CHEST PORT, 1/2 NS WITH 20K+ INFUSING @ 75ML/HR. SITE PATENT WITHOUT REDNESS OR SWELLING. BLE EDEMA, GENERALIZED. ON TELEMETRY SR 73. WBC UP TO 5.3 THIS AM. PERIPHERAL IV TO LEFT FOREARM, SL. SITE PATENT WITHOUT REDNESS OR SWELLING. PATIENT IN GOOD SPIRITS THIS AM. DRAIN TO RUQ, DRESSING C/D/I. DENIES ANY NEEDS AT THIS TIME. CALL LIGHT IN REACH. WILL CONTINUE TO MONITOR.
--- NOTE | 2020-04-10 10:54 | NUR ---
I have reviewed this patient and I concur with the Shift Assessment completed by the Licensed Practical Nurse today this shift.
--- NOTE | 2020-04-10 18:19 | NUR ---
A&O SITTING UP IN CHAIR. NO C/O PAIN. NO S/S OF ACUTE DISTRESS NOTED. DENIES ANY NEEDS AT THIS TIME. CALL LIGHT IN REACH. WILL CONTINUE TO MONITOR.
--- NOTE | 2020-04-11 07:43 | NUR ---
PT SITTING UP IN CHAIR. REQUESTING AND WILL RECIEVE PAIN MEDICATION. CL IN REACH. WCTM
[2020-04-11 09:07] VITALS: BP 158/86
--- NOTE | 2020-04-11 11:09 | NUR ---
P0RT CHECKED FOR BLOOD RETURN, GOOD BLOOD RETURN.CHEMO STARTED. PATIENT SITTINT UP IN CHAIR, PATIENT DIDN`T WANT TO LAY DOWN, VV TAKEN BP 156/86 RESP 18. HR 86 O2 SAT 96%. TELEMETERY CALLED FOR READING HR 82 SR PER GAS ROLLER OPERATOR
--- NOTE | 2020-04-11 11:24 | NUR ---
PT SITTING IN CHAIR. SHADI QUIÑONES, RN IN ROOM GIVING CHEMO. CL IN REACH. WCTM
--- NOTE | 2020-04-11 12:22 | NUR ---
2nd bag OF CHEMO READY TO HANG, PORT FLUSHED WITH NS WITH A GOOD BLOOD RETURN 2 ND BAG CHEMO HUNG, PATIENT C/P ON SCALE OF 10 , PAIN MEDICATION GIVEN PER IV IN LEFT FOREARM SLOW PUSH BP 178/95
[2020-04-11 14:56] VITALS: BP 174/98
--- NOTE | 2020-04-11 19:10 | NUR ---
assumed care of patient at 1900, patient awake sitting up in chair, c/o abdominal pain, bili drain intact, iv infusing without complications, will continue to monitor patient, call light within reach
[2020-04-12 01:13] VITALS: BP 143/75
[2020-04-12 06:34] LABS: BASOPHILS 0 % (0-2); EOSINOPHILS 0.2 % (0-7); HEMATOCRIT 29.1 % (36.0-48.0); HEMOGLOBIN 9.7 g/dL (12-16); IMMATURE GRANULOCYTES 0.5 % (0-5); LYMPHOCYTES 10.2 % (15-50); MCH 29.6 pg (26.0-34.0); MCHC 33.3 g/dL (31.0-37.0); MCV 88.7 fL (80.0-100.0); MEAN PLATELET VOLUME 9.3 fL (7.4-10.4); NEUTROPHILS 80.1 % (40-80); PLATELET COUNT 207 10x3/uL (130-400); RBC 3.28 10x6/uL (4.00-5.40); RDW 14.3 % (11.5-14.5); WBC 5.9 10x3/uL (4.8-10.8)
[2020-04-12 06:51] LABS: ALBUMIN 3.1 g/dL (3.4-5.0); ALKALINE PHOSPHATASE 79 U/L (30-120); ALT (SGPT) 48 U/L (10-68); BILIRUBIN - TOTAL 2.99 mg/dL (0.2-1.3); CALC OSMOLALITY 267 mosm/kg (275-300); CALCIUM 8.5 mg/dL (8.5-10.1); CARBON DIOXIDE 22.7 mmol/L (21.0-32.0); CHLORIDE - SERUM 99 mmol/L (98-107); CREATININE - SERUM 0.7 mg/dL (0.6-1.3); GLUCOSE 114 mg/dL (74-106); POTASSIUM - SERUM 3.9 mmol/L (3.5-5.1); PROTEIN - SERUM 6.7 g/dL (6.4-8.2); SODIUM 134 mmol/L (136-145); UREA NITROGEN 10 mg/dL (7-18); eGFR NON AFRICAN AMERICAN 89 mL/min (90-120)
--- NOTE | 2020-04-12 08:00 | NUR ---
PATIENT SITTING UP IN CHAIR. IV INTACT. PAIN MEDS AT THIS TIME. NO OTHER COMPLAINTS. DRAIN INTACT. WILL CONTINUE TO MONITOR, CALL LIGHT WITHIN REACH.
[2020-04-12 09:50] VITALS: BP 189/96
--- NOTE | 2020-04-12 11:12 | NUR ---
PATIENT SITTING UP IN CHAIR SLEEPING. NO COMPLAINTS OR SIGNS OF DISTRESS. CALL LIGHT WITHIN REACH.
[2020-04-12 16:00] VITALS: BP 144/73
--- NOTE | 2020-04-12 19:35 | NUR ---
PATIENT SITTING UP IN CHAIR WITH NO S/S OF DISTRESS AND DENIES NEEDS AT THIS TIME. BED IN LOWEST POSITION AND CALL LIGHT WITHIN REACH. ENCOURAGED THE PATIENT TO CALL IF SHE HAS NEEDS. WILL CONTINUE TO MONITOR.
--- NOTE | 2020-04-12 20:56 | NUR ---
ADMINISTERED MEDS PER ORDERS. PATIENT DENIES OTHER NEEDS. WILL CONTINUE TO MONITOR.
[2020-04-12 21:14] VITALS: BP 134/80
[2020-04-13 01:21] VITALS: BP 151/76
[2020-04-13 06:17] VITALS: BP 190/94
[2020-04-13 06:24] LABS: BASOPHILS 0.2 % (0-2); EOSINOPHILS 2.6 % (0-7); HEMATOCRIT 30.6 % (36.0-48.0); HEMOGLOBIN 9.9 g/dL (12-16); IMMATURE GRANULOCYTES 0.2 % (0-5); LYMPHOCYTES 16.7 % (15-50); MCH 28.9 pg (26.0-34.0); MCHC 32.4 g/dL (31.0-37.0); MCV 89.2 fL (80.0-100.0); MEAN PLATELET VOLUME 9.7 fL (7.4-10.4); MONOCYTES 5.7 % (2-11); NEUTROPHILS 74.6 % (40-80); PLATELET COUNT 182 10x3/uL (130-400); RBC 3.43 10x6/uL (4.00-5.40); RDW 14.5 % (11.5-14.5)
[2020-04-13 06:25] LABS: WBC 4.2 10x3/uL (4.8-10.8)
[2020-04-13 07:12] LABS: ALKALINE PHOSPHATASE 82 U/L (30-120); ALT (SGPT) 55 U/L (10-68); BILIRUBIN - TOTAL 2.89 mg/dL (0.2-1.3); CALC OSMOLALITY 270 mosm/kg (275-300); CALCIUM 8.8 mg/dL (8.5-10.1); CARBON DIOXIDE 21.8 mmol/L (21.0-32.0); CHLORIDE - SERUM 102 mmol/L (98-107); CREATININE - SERUM 0.6 mg/dL (0.6-1.3); GLUCOSE 88 mg/dL (74-106); POTASSIUM - SERUM 3.5 mmol/L (3.5-5.1); PROTEIN - SERUM 6.5 g/dL (6.4-8.2); SODIUM 136 mmol/L (136-145); UREA NITROGEN 12 mg/dL (7-18); URIC ACID 5.4 mg/dL (2.6-7.2); eGFR NON AFRICAN AMERICAN > 90 mL/min (90-120)
--- NOTE | 2020-04-13 07:44 | NUR ---
UP IN CHAIR, NO DISTRESS NOTED, IV INFUSING PER PORT, CONT TO MONITOR PAIN
[2020-04-13 08:00] VITALS: BP 156/79
[2020-04-13 12:18] VITALS: BP 165/81
--- NOTE | 2020-04-13 13:30 | NUR ---
BILIDRAIN FLUSHED, MIMI WELL, EMPTIED BAG OF 350CC OF THICK GREEN DRAINAGE
--- NOTE | 2020-04-13 14:34 | NUR ---
DRESSING CHANGED TO BILI SITE, NO S/S OF INFECTION NOTED, CLEANED AND COVERED WITH 4X4 AND TAPER
[2020-04-13 16:26] VITALS: BP 150/71
[2020-04-13 22:11] VITALS: BP 130/75
[2020-04-14 01:38] VITALS: BP 152/78
[2020-04-14 05:43] VITALS: BP 139/79
[2020-04-14 06:54] LABS: BASOPHILS 0.3 % (0-2); EOSINOPHILS 2.7 % (0-7); HEMATOCRIT 30.5 % (36.0-48.0); HEMOGLOBIN 10.1 g/dL (12-16); LYMPHOCYTES 18.2 % (15-50); MCH 29.4 pg (26.0-34.0); MCHC 33.1 g/dL (31.0-37.0); MCV 88.7 fL (80.0-100.0); MEAN PLATELET VOLUME 9.8 fL (7.4-10.4); NEUTROPHILS 75.8 % (40-80); PLATELET COUNT 157 10x3/uL (130-400); RBC 3.44 10x6/uL (4.00-5.40); RDW 14.2 % (11.5-14.5)
[2020-04-14 07:00] LABS: ALBUMIN 3.1 g/dL (3.4-5.0); ALKALINE PHOSPHATASE 76 U/L (30-120); ALT (SGPT) 51 U/L (10-68); BILIRUBIN - TOTAL 3.29 mg/dL (0.2-1.3); CALCIUM 8.7 mg/dL (8.5-10.1); CARBON DIOXIDE 24.1 mmol/L (21.0-32.0); CHLORIDE - SERUM 101 mmol/L (98-107); CREATININE - SERUM 0.7 mg/dL (0.6-1.3); POTASSIUM - SERUM 3.8 mmol/L (3.5-5.1); PROTEIN - SERUM 6.6 g/dL (6.4-8.2); SODIUM 133 mmol/L (136-145); eGFR NON AFRICAN AMERICAN 89 mL/min (90-120)
[2020-04-14 07:08] LABS: CALC OSMOLALITY 266 mosm/kg (275-300); UREA NITROGEN 10 mg/dL (7-18)
[2020-04-14 07:11] LABS: GLUCOSE 133 mg/dL (74-106)
--- NOTE | 2020-04-14 07:50 | NUR ---
SITTING IN CHAIR AT BEDSIDE WATCHING TV. NO ACUTE DISTRESS NOTED. ASKED WHEN NEXT DOSE OF SCHEDULED PAIN MED WAS DUE BUT SHE DENIED NEEDING ANYTHING FOR PAIN AT THE MOMENT. CALL LIGHT WITHIN REACH. NEEDS ANTICIPATED AND MET. WILL CONTINUE TO MONITOR
[2020-04-14 09:11] VITALS: BP 138/82
[2020-04-14 12:25] VITALS: BP 145/76
--- NOTE | 2020-04-14 14:15 | NUR ---
Nutrition follow-up: Pt started chemotherapy 04/11 Diet: Regular as tolerated PO intake ~50% average of meals; no intake at some meals Labs reviewed Wt: 150# +BM Will continue to honor food preferences and encourage increased po intake. RDN following.
[2020-04-14 16:04] VITALS: BP 122/68
--- NOTE | 2020-04-14 17:10 | NUR ---
OT NOTE: PT COMPLETED SIMPLE FACE AND HAND HYGIENE WITH SETUP . PT STATED HER STOMACH IS PAINFUL. NURSING IS AWARE. 1116 HEIDI GARCIA COTA
[2020-04-14 20:00] VITALS: BP 109/72
[2020-04-15] VITALS: BP 155/69
[2020-04-15 04:00] VITALS: BP 141/86
[2020-04-15 08:36] VITALS: BP 141/84
[2020-04-15 09:01] LABS: CALC OSMOLALITY 265 mosm/kg (275-300); CALCIUM 8.2 mg/dL (8.5-10.1); CARBON DIOXIDE 24.6 mmol/L (21.0-32.0); CHLORIDE - SERUM 102 mmol/L (98-107); CREATININE - SERUM 0.6 mg/dL (0.6-1.3); GLUCOSE 127 mg/dL (74-106); POTASSIUM - SERUM 3.4 mmol/L (3.5-5.1); SODIUM 133 mmol/L (136-145); eGFR NON AFRICAN AMERICAN > 90 mL/min (90-120)
[2020-04-15 09:02] LABS: UREA NITROGEN 6 mg/dL (7-18)
[2020-04-15 09:07] LABS: ALBUMIN 2.9 g/dL (3.4-5.0); ALKALINE PHOSPHATASE 66 U/L (30-120); ALT (SGPT) 48 U/L (10-68); BILIRUBIN - TOTAL 3.54 mg/dL (0.2-1.3)
[2020-04-15 09:58] LABS: HEMATOCRIT 28.1 % (36.0-48.0); HEMOGLOBIN 9.3 g/dL (12-16); MCH 29.3 pg (26.0-34.0); MCHC 33.1 g/dL (31.0-37.0); MCV 88.6 fL (80.0-100.0); MEAN PLATELET VOLUME 9.6 fL (7.4-10.4); PLATELET COUNT 126 10x3/uL (130-400); RBC 3.17 10x6/uL (4.00-5.40); RDW 13.9 % (11.5-14.5)
[2020-04-15 10:09] LABS: WBC 2.2 10x3/uL (4.8-10.8)
[2020-04-15 11:37] LABS: EOSINOPHILS 2 % (0-7); LYMPHOCYTES 16 % (15-50); MONOCYTES 5 % (2-11); NEUTROPHILS 76 % (40-80); PLATELET ESTIMATE NORMAL
[2020-04-15 12:39] VITALS: BP 114/66
--- NOTE | 2020-04-15 12:52 | NUR ---
OT NOTE: PT CONTINUED TO REPORT ABDOMINAL PAIN, HOWEVER, SHE DID MUCH BETTER TODAY VS YESTERDAY. PT ABLE TO AMB IN ROOM WITH WALKER AND CGA. ABLE TO PERFORM SINK HYGIENE TASKS WITH SBA; AMB INTO HALLWAY GREATER THAN 175 FT TO IMPROVE STRENGTH AND FUNCTIONAL ENDURANCE. PT MUCH MORE CONVERSANT TODAY. PERFORMING ADLS WITH MIN/SET UP. LETTY ELLER, OTR/L [phone]
--- NOTE | 2020-04-15 15:13 | OP ---
PATIENT NAME: CHERIE RANDALL MEDICAL RECORD: [id number] :55 LOCATION:D[id number] ADMISSION DATE:03/25/20 SURGEON: GUSTAVO DEWEY MD DATE OF OPERATION: 04/09/2020 PREOPERATIVE DIAGNOSES: B-cell lymphoma, in need of IV access for chemotherapy. POSTOPERATIVE DIAGNOSES: B-cell lymphoma, in need of IV access for chemotherapy. PROCEDURES: 1. Placement of left infraclavicular PowerPort under fluoroscopic guidance. 2. Immediate surgeon interpretation of fluoroscopic images. SURGEON: Gustavo Dewey MD TUBE CLEANING OPERATOR: None. BLOOD LOSS: Minimal. ANESTHESIA: General. COMPLICATIONS: None. The risks, possible complications and alternatives to the procedure were explained to the patient. She elects to proceed. The discussion specifically included, but was not limited to, bleeding requiring emergency reoperation, infection, the port could flip, it could break, it could clot off. I told the patient, we would try to place it on the left side. If we were unable to place on the left side, then we would have to place on the right side. No radiologist was present for this procedure. Static fluoroscopic images were obtained and are kept in the PACS system. The surgeon interpretation of the fluoroscopic images is dictated within the body of this operative note. OPERATIVE COURSE: The patient was conveyed to the operating room electively on 04/09/2020. General anesthesia was induced by the anesthesia staff. The left chest and left neck were sterilely prepped and draped. Under ultrasonographic guidance, I percutaneously accessed the left internal jugular vein in an antegrade fashion. A guidewire passed easily. This was visualized under fluoroscopy. An incision was accomplished around the guidewire. A counterincision was accomplished in the left anterior superior infraclavicular chest. A subcutaneous pocket was created in a caudad direction. I tunneled a PowerPort catheter from the chest incision to the neck incision. Over the guidewire, I dilated with a dilator sheath. This was visualized under fluoroscopy. The dilator and wire were removed. Through the sheath, I advanced the PowerPort catheter. The Peel-Away sheath was then removed. Under fluoroscopy, I pulled back on the PowerPort catheter so that its tip was at the cavoatrial junction. I then shortened the PowerPort catheter. It was attached to the PowerPort. The locking device was firmly engaged. The PowerPort was then placed in the subcutaneous pocket. Three point fixation was performed utilizing 3-0 Prolenes. I irrigated the port pocket. There was no bleeding. The neck incision was closed with interrupted intracuticular 3-0 Vicryls. The subdermis at the chest site was closed with interrupted 3-0 Vicryls. The skin OPERATIVE REPORT [id number] BANNING,CHERIE at the chest site was closed with a running intracuticular 4-0 Vicryl. I then percutaneously accessed the port. It accessed easily. It aspirated blood easily and flushed easily as well. Sterile dressings were applied. Images were obtained that revealed there was no kinking or twisting of the catheter. No evidence of a pneumothorax. The patient's port can be utilized immediately for IV medications and chemotherapy. TRANSINT:[id number] Voice Confirmation ID: [id number] DOCUMENT ID: [id number] GUSTAVO DEWEY MD at 1513 CC: YI JADE MD and PORTIA PADILLA DO [id number] DICTATION DATE: 04/09/20 1017 TEAMCENTER CONSULTANT: 04/09/20 1208 ADM IN [facility] [address] [place] [address]
--- NOTE | 2020-04-15 15:29 | NUR ---
PT COMPLAINING OF EXCRUCIATING PAIN IN UPPER ABD. GAVE WAREHOUSE SORTER BOLUS AND NOTIFIED . INSTRUCTED TO UNCLAMP BILIARY DRAIN AND MAKE PT NPO AFTER MIDMIGHT IN PREPARATION FOR POSSIBE REPOSITIONING OR REPLACING OF DRAIN. CONTINUINT TO MONITOR
--- NOTE | 2020-04-15 16:57 | NUR ---
CHECKED BILIARY DRAIN SINCE UNCLAMPPING. 50ML OF DRAINAGE DOCUMENTED. PT REPORTS NO PAIN RELIEF SINCE UNCLAMPING DRAIN. UPPER ABD STILL DISTEDED AND TENDER TO TOUCH. NOTIFIED . HE WILL COME ASSESS PATIENT/DRAIN. CONTINUING TO MONITOR
[2020-04-15 17:20] VITALS: BP 105/60
--- NOTE | 2020-04-15 17:44 | NUR ---
OT NOTE: PT COMPLETED SIT TO STAND WITH CGA. PT COMPLETED ADL MOB WITH RW REQUIRED CGA. PT COMPLETED BUE AROM WITH WALKER MANAGEMENT. [phone] THANK YOU,FRANCIE MANTILLA
--- NOTE | 2020-04-15 18:25 | NUR ---
CHANGED DRESSING AROUND BILIARY DRAIN. CLEANED WITH NS, APPLIED SPLIT GAUZE AND SECURRED WITH METAPORE TAPE. TOLERATED WELL. NEEDS ANTICIPATED AND MET. WILL CONTINUE TO MONITOR
[2020-04-15 20:00] VITALS: BP 111/63
[2020-04-16] VITALS: BP 122/72
--- NOTE | 2020-04-16 02:21 | NUR ---
I have reviewed this patient and I concur with the Shift Assessment completed by the Licensed Practical Nurse today this shift.
[2020-04-16 04:00] VITALS: BP 114/72
[2020-04-16 08:50] VITALS: BP 149/83
[2020-04-16 11:54] LABS: HEMOGLOBIN 9.3 g/dL (12-16); MCH 29.1 pg (26.0-34.0); MCHC 33.2 g/dL (31.0-37.0); MCV 87.5 fL (80.0-100.0); MEAN PLATELET VOLUME 9.8 fL (7.4-10.4); PLATELET COUNT 107 10x3/uL (130-400); RDW 13.8 % (11.5-14.5); WBC 2.3 10x3/uL (4.8-10.8)
[2020-04-16 12:02] LABS: APTT 32.5 SECONDS (22.8-39.4); INR 1.4 (0.85-1.17)
[2020-04-16 12:12] LABS: ALBUMIN 2.9 g/dL (3.4-5.0); ALKALINE PHOSPHATASE 69 U/L (30-120); ALT (SGPT) 50 U/L (10-68); BILIRUBIN - TOTAL 3.74 mg/dL (0.2-1.3); CALC OSMOLALITY 264 mosm/kg (275-300); CALCIUM 8.1 mg/dL (8.5-10.1); CARBON DIOXIDE 24.1 mmol/L (21.0-32.0); CHLORIDE - SERUM 101 mmol/L (98-107); CREATININE - SERUM 0.8 mg/dL (0.6-1.3); GLUCOSE 140 mg/dL (74-106); POTASSIUM - SERUM 3.7 mmol/L (3.5-5.1); PROTEIN - SERUM 5.9 g/dL (6.4-8.2); SODIUM 133 mmol/L (136-145); UREA NITROGEN 5 mg/dL (7-18); eGFR NON AFRICAN AMERICAN 76 mL/min (90-120)
[2020-04-16 12:44] VITALS: BP 102/62
[2020-04-16 13:25] LABS: LYMPHOCYTES 15 % (15-50); MONOCYTES 9 % (2-11); NEUTROPHILS 75 % (40-80); PLATELET ESTIMATE DECREASED
[2020-04-16 13:26] LABS: ANISOCYTOSIS OCC
--- NOTE | 2020-04-16 13:28 | NUR ---
OUT OF ROOM FOR SURGERY
[2020-04-16 16:57] VITALS: BP 128/62
[2020-04-16 20:00] VITALS: BP 103/59
--- NOTE | 2020-04-16 20:00 | NUR ---
PT SITTING UP IN BEDSIDE CHAIR, AOX4. STATES PAIN IN ABD 8/10. ABD DISTENDED, TENDER TO TOUCH. LEFT CHEST PORT INFUSING 1/2NS WITH 20K @ 75. DILAUDID DEAN OF STUDENT SERVICES IN USE. BILIARY DRAIN IN PLACE, YELLOW DRAINAGE. PT IS JAUNDICE. DENIES NEEDS AT THIS TIME. CL IN REACH, WILL CTM
[2020-04-17] VITALS: BP 130/72
--- NOTE | 2020-04-17 01:30 | NUR ---
CHANGED LEFT CHEST PORT DRESSING AT THIS TIME
[2020-04-17 04:00] VITALS: BP 140/78
[2020-04-17 06:34] LABS: ALKALINE PHOSPHATASE 63 U/L (30-120); ALT (SGPT) 47 U/L (10-68); BILIRUBIN - TOTAL 3.86 mg/dL (0.2-1.3); CALC OSMOLALITY 269 mosm/kg (275-300); CALCIUM 8.6 mg/dL (8.5-10.1); CARBON DIOXIDE 26.6 mmol/L (21.0-32.0); CHLORIDE - SERUM 102 mmol/L (98-107); CREATININE - SERUM 0.6 mg/dL (0.6-1.3); GLUCOSE 118 mg/dL (74-106); POTASSIUM - SERUM 3.7 mmol/L (3.5-5.1); PROTEIN - SERUM 6.1 g/dL (6.4-8.2); SODIUM 136 mmol/L (136-145); UREA NITROGEN 5 mg/dL (7-18); eGFR NON AFRICAN AMERICAN > 90 mL/min (90-120)
[2020-04-17 06:50] LABS: BASOPHILS 1.6 % (0-2); EOSINOPHILS 2.7 % (0-7); HEMATOCRIT 27.4 % (36.0-48.0); HEMOGLOBIN 9.2 g/dL (12-16); IMMATURE GRANULOCYTES 2.7 % (0-5); LYMPHOCYTES 25.3 % (15-50); MCH 29.3 pg (26.0-34.0); MCHC 33.6 g/dL (31.0-37.0); MCV 87.3 fL (80.0-100.0); MONOCYTES 3.3 % (2-11); NEUTROPHILS 64.4 % (40-80); RBC 3.14 10x6/uL (4.00-5.40); RDW 14.1 % (11.5-14.5)
[2020-04-17 06:51] LABS: PLATELET COUNT 140 10x3/uL (130-400); WBC 1.8 10x3/uL (4.8-10.8)
--- NOTE | 2020-04-17 07:49 | NUR ---
PATIENT IN CHAIR SLEEPING. AROUSES TO VOICE. DENIES PAIN OR NEEDS. CALL LIGHT IN REACH, BELONGINGS IN REACH, FREE FROM SIGNS OF DISTRESS.
[2020-04-17 08:51] VITALS: BP 169/88
[2020-04-17 12:02] VITALS: BP 170/95
--- NOTE | 2020-04-17 16:46 | NUR ---
OT NOTE: PT COMPLETED SIT TO STAND WITH MIN A. PT COMPLETED ADL MOB WITH RW REQUIRED CGA. PT COMPLETED FACE HYGIENE WITH SETUP. PT COMPLETED UE AROM WITH WALKER MANAGEMENT. PT STATED HER" ENERGY LEVEL AND ENDURANCE ARE WORSE TODAY". HOWEVER, PT ACTIVELY PARTICIPATED AND EXHIBITED GOOD MOTIVATION. [id number] HEIDI GARCIA COTA
[2020-04-17 16:49] VITALS: BP 119/59
[2020-04-17 20:00] VITALS: BP 141/71
[2020-04-18] VITALS: BP 135/70
[2020-04-18 04:00] VITALS: BP 170/70
[2020-04-18 06:01] LABS: HEMATOCRIT 27.3 % (36.0-48.0); MCH 28.7 pg (26.0-34.0); MCV 86.9 fL (80.0-100.0); MEAN PLATELET VOLUME 9.6 fL (7.4-10.4); PLATELET COUNT 141 10x3/uL (130-400); RBC 3.14 10x6/uL (4.00-5.40); RDW 13.8 % (11.5-14.5)
[2020-04-18 06:05] LABS: WBC 1.6 10x3/uL (4.8-10.8)
[2020-04-18 06:20] LABS: ALKALINE PHOSPHATASE 69 U/L (30-120); ALT (SGPT) 48 U/L (10-68); BILIRUBIN - TOTAL 3.77 mg/dL (0.2-1.3); CALC OSMOLALITY 268 mosm/kg (275-300); CALCIUM 8.5 mg/dL (8.5-10.1); CARBON DIOXIDE 25.7 mmol/L (21.0-32.0); CHLORIDE - SERUM 101 mmol/L (98-107); CREATININE - SERUM 0.6 mg/dL (0.6-1.3); GLUCOSE 127 mg/dL (74-106); POTASSIUM - SERUM 3.9 mmol/L (3.5-5.1); PROTEIN - SERUM 6.2 g/dL (6.4-8.2); SODIUM 135 mmol/L (136-145); UREA NITROGEN 4 mg/dL (7-18); eGFR NON AFRICAN AMERICAN > 90 mL/min (90-120)
[2020-04-18 08:51] VITALS: BP 149/83
[2020-04-18 10:36] LABS: EOSINOPHILS 4 % (0-7); LYMPHOCYTES 12 % (15-50); MONOCYTES 2 % (2-11); NEUTROPHILS 81 % (40-80); PLATELET ESTIMATE NORMAL
[2020-04-18 10:37] LABS: ANISOCYTOSIS OCC
[2020-04-18 12:36] VITALS: BP 119/73
--- NOTE | 2020-04-18 13:53 | NUR ---
Nutrition follow-up: Pt receiving a regular diet PO intake continues to be ~25% of meals +BM No new wt to assess Labs reviewed Pt may benefit from an appetite stimulant RDN following.
[2020-04-18 16:56] VITALS: BP 141/83
--- NOTE | 2020-04-18 17:30 | NUR ---
PATIENT IN CHAIR. STATES HER PAIN IS 8/10. NET SOFTWARE DEVELOPER INFUSING PER ORDER. DENIES ANY OTHER NEEDS AT THIS TIME. FREE FROM SIGNS OF DISTRESS. WILL CONTINUE TO MONITOR.
--- NOTE | 2020-04-18 19:00 | NUR ---
RECEIVED REPORT, ASSUMED CARE, IV PATENT, DENIES NEEDS, NO S/S OF DISTRESS NOTED, BED LOWEST POSITION, CALL LIGHT IN REACH, MEDICAL RECORDS ASSISTANT INFUSING
[2020-04-18 20:16] VITALS: BP 122/67
[2020-04-19] VITALS (8 sets, daily range): BP systolic 84–184; BP diastolic 42–94
--- NOTE | 2020-04-19 04:15 | NUR ---
I have reviewed this patient and I concur with the Shift Assessment completed by the Licensed Practical Nurse today this shift.
[2020-04-19 06:40] LABS: BASOPHILS 0.7 % (0-2); EOSINOPHILS 4.9 % (0-7); HEMATOCRIT 26.7 % (36.0-48.0); HEMOGLOBIN 8.9 g/dL (12-16); IMMATURE GRANULOCYTES 0.7 % (0-5); LYMPHOCYTES 29.2 % (15-50); MCH 28.8 pg (26.0-34.0); MCHC 33.3 g/dL (31.0-37.0); MCV 86.4 fL (80.0-100.0); MEAN PLATELET VOLUME 9.5 fL (7.4-10.4); MONOCYTES 16.7 % (2-11); NEUTROPHILS 47.8 % (40-80); PLATELET COUNT 163 10x3/uL (130-400); RBC 3.09 10x6/uL (4.00-5.40); RDW 13.7 % (11.5-14.5)
[2020-04-19 06:42] LABS: WBC 1.4 10x3/uL (4.8-10.8)
[2020-04-19 06:57] LABS: ALBUMIN 3.1 g/dL (3.4-5.0); ALKALINE PHOSPHATASE 70 U/L (30-120); ALT (SGPT) 50 U/L (10-68); BILIRUBIN - TOTAL 3.57 mg/dL (0.2-1.3); CALC OSMOLALITY 265 mosm/kg (275-300); CALCIUM 8.7 mg/dL (8.5-10.1); CARBON DIOXIDE 24.2 mmol/L (21.0-32.0); CHLORIDE - SERUM 101 mmol/L (98-107); CREATININE - SERUM 0.5 mg/dL (0.6-1.3); GLUCOSE 124 mg/dL (74-106); POTASSIUM - SERUM 3.8 mmol/L (3.5-5.1); PROTEIN - SERUM 6.2 g/dL (6.4-8.2); SODIUM 134 mmol/L (136-145); UREA NITROGEN 3 mg/dL (7-18); eGFR NON AFRICAN AMERICAN > 90 mL/min (90-120)
--- NOTE | 2020-04-19 08:24 | NUR ---
PT CO OF PAIN AT LEAST AN 8 OUT OF 10. FENTANYL PATCH ON LEFT SHOULDER. SITTING UP IN CHAIR. CL IN REACH. WCTM
--- NOTE | 2020-04-19 11:15 | NUR ---
PT SITTING IN CHAIR. NO NEEDS AT THIS TIME. TISSUES PROVIDED FROM REQUEST EARLIER. CL IN REACH. WCTM
--- NOTE | 2020-04-19 15:17 | NUR ---
PT SITTING IN CHAIR. CO OF PAIN. QUESTIONS ASKED/ANSWERED WHEN SHE COULD HAVE ANOTHER BOLUS. CL IN REACH. WCTM
--- NOTE | 2020-04-19 16:20 | NUR ---
NOTIFIED OF PT LOW BP. 84/48 MANUAL. PT ALERT ORIENTED. I DID JUST GIVE HER A BOLUS, ZANAFLEX, AND HER BP MEDICATION. WILL MONITOR.
--- NOTE | 2020-04-19 19:00 | NUR ---
RECEIVED REPORT, ASSUMED CARE, IV PATENT, DENIES NEEDS, NO S/S OF DISTRESS NOTED, BED LOWEST POSITION, CALL LIGHT IN REACH, DRY PRESS OPERATOR INFUSING
[2020-04-20] VITALS: BP 139/76
[2020-04-20 04:00] VITALS: BP 169/92
[2020-04-20 08:10] VITALS: BP 156/91
--- NOTE | 2020-04-20 08:16 | NUR ---
PT CO OF 9 OUT OF 10 PAIN. SITTING UP IN CHAIR. NO NEEDS AT THIS TIME. CL IN REACH. WCTM
--- NOTE | 2020-04-20 08:30 | NUR ---
PT SM BM CHANGED. REPOSITIONED TO LEFT SIDE. CL IN REACH. POSSE ALARM ON. WCTM
[2020-04-20 09:38] LABS: HEMATOCRIT 26.6 % (36.0-48.0); HEMOGLOBIN 8.8 g/dL (12-16); MCH 28.6 pg (26.0-34.0); MCHC 33.1 g/dL (31.0-37.0); MCV 86.4 fL (80.0-100.0); MEAN PLATELET VOLUME 9.6 fL (7.4-10.4); PLATELET COUNT 174 10x3/uL (130-400); RBC 3.08 10x6/uL (4.00-5.40); RDW 13.8 % (11.5-14.5)
[2020-04-20 09:49] LABS: WBC 1.3 10x3/uL (4.8-10.8)
[2020-04-20 09:58] LABS: ALKALINE PHOSPHATASE 67 U/L (30-120); ALT (SGPT) 57 U/L (10-68); BILIRUBIN - TOTAL 2.99 mg/dL (0.2-1.3); CALC OSMOLALITY 267 mosm/kg (275-300); CALCIUM 8.6 mg/dL (8.5-10.1); CARBON DIOXIDE 25.1 mmol/L (21.0-32.0); CHLORIDE - SERUM 102 mmol/L (98-107); CREATININE - SERUM 0.6 mg/dL (0.6-1.3); GLUCOSE 121 mg/dL (74-106); POTASSIUM - SERUM 3.9 mmol/L (3.5-5.1); PROTEIN - SERUM 6.1 g/dL (6.4-8.2); SODIUM 135 mmol/L (136-145); eGFR NON AFRICAN AMERICAN > 90 mL/min (90-120)
[2020-04-20 10:11] LABS: UREA NITROGEN 4 mg/dL (7-18)
[2020-04-20 10:13] LABS: EOSINOPHILS 1 % (0-7); LYMPHOCYTES 44 % (15-50); MONOCYTES 6 % (2-11); NEUTROPHILS 46 % (40-80); PLATELET ESTIMATE NORMAL
--- NOTE | 2020-04-20 10:33 | NUR ---
CALLED Dev CURRAN APN ABOUT PT 1.3 WBC. PT PLACED UNDER NEUTROPENIC PRECAUTIONS. NEUTROPENIC REG DIET.
--- NOTE | 2020-04-20 12:03 | NUR ---
REARRANGED PT ROOM TO MAKE MORE ACCESSABLE FOR PT. CL IN REACH. NO FURTHER NEEDS AT THIS TIME. WCTM
[2020-04-20 12:29] VITALS: BP 172/92
--- NOTE | 2020-04-20 15:11 | NUR ---
THOR WALSH IN ROOM. MCKEON REMOVED. CL IN REACH. PT IN CHAIR. WCTM
[2020-04-20 16:49] VITALS: BP 100/53
--- NOTE | 2020-04-20 17:30 | NUR ---
IV TUBING CHANGED
--- NOTE | 2020-04-20 19:00 | NUR ---
RECEIVED REPORT, ASSUMED CARE, IV PATENT, DENIES NEEDS, NO S/S OF DISTRESS NOTED, PT UP IN CHAIR, CALL LIGHT IN REACH, PARCEL CONTRACTOR INFUSING, BILI DRAIN CLAMPED, A&O X3
[2020-04-20 20:00] VITALS: BP 104/62
--- NOTE | 2020-04-20 23:25 | NUR ---
I have reviewed this patient and I concur with the Shift Assessment completed by the Licensed Practical Nurse today this shift.
[2020-04-21] VITALS (8 sets, daily range): BP systolic 118–168; BP diastolic 65–87
--- NOTE | 2020-04-21 07:12 | NUR ---
PT SITTING IN CHAIR. CO OF PAIN A 8 OUT OF 10. CL IN REACH. NO NEEDS AT THIS TIME. WCTM
[2020-04-21 09:09] LABS: ALBUMIN 2.9 g/dL (3.4-5.0); ALKALINE PHOSPHATASE 78 U/L (30-120); ALT (SGPT) 53 U/L (10-68); BILIRUBIN - TOTAL 2.73 mg/dL (0.2-1.3); CALC OSMOLALITY 268 mosm/kg (275-300); CALCIUM 8.5 mg/dL (8.5-10.1); CARBON DIOXIDE 26.6 mmol/L (21.0-32.0); CHLORIDE - SERUM 103 mmol/L (98-107); CREATININE - SERUM 0.7 mg/dL (0.6-1.3); GLUCOSE 127 mg/dL (74-106); POTASSIUM - SERUM 3.8 mmol/L (3.5-5.1); SODIUM 135 mmol/L (136-145); UREA NITROGEN 3 mg/dL (7-18); eGFR NON AFRICAN AMERICAN 89 mL/min (90-120)
[2020-04-21 09:14] LABS: HEMATOCRIT 26.8 % (36.0-48.0); HEMOGLOBIN 8.9 g/dL (12-16); MCH 28.7 pg (26.0-34.0); MCHC 33.2 g/dL (31.0-37.0); MCV 86.5 fL (80.0-100.0); MEAN PLATELET VOLUME 9.3 fL (7.4-10.4); PLATELET COUNT 202 10x3/uL (130-400); RDW 13.8 % (11.5-14.5)
[2020-04-21 09:31] LABS: WBC 1.4 10x3/uL (4.8-10.8)
[2020-04-21 13:59] LABS: EOSINOPHILS 3 % (0-7); LYMPHOCYTES 49 % (15-50); MONOCYTES 14 % (2-11); NEUTROPHILS 33 % (40-80); PLATELET ESTIMATE NORMAL; SMUDGE CELLS OCC
[2020-04-22 04:12] VITALS: BP 140/95
--- NOTE | 2020-04-22 06:50 | NUR ---
A&O SITTING UP IN CHAIR. C/O PAIN, DILAUDID RESEARCH BIOLOGIST 0.2/05/04 MANAGING PAIN. NO S/S OF ACUTE DISTRESS NOTED. BILI DRAIN TO RUQ, GREEN DRAINAGE. STOP COCK LEAKING, CALLED FOR ANOTHER TO REPLACE. ON TELEMETRY SR 75. LEFT CHEST PORT, 1/2 NS WITH 20K+ INFUSING @ 75ML/HR. SITE PATENT WITHOUT REDNESS OR SWELLING. DENIES ANY NEEDS AT THIS TIME. CALL LIGHT IN REACH. WILL CONTINUE TO MONITOR.
[2020-04-22 08:55] VITALS: BP 158/93
[2020-04-22 08:56] LABS: BASOPHILS 1.4 % (0-2); EOSINOPHILS 2.8 % (0-7); HEMATOCRIT 27.6 % (36.0-48.0); HEMOGLOBIN 8.9 g/dL (12-16); IMMATURE GRANULOCYTES 4.6 % (0-5); LYMPHOCYTES 33.5 % (15-50); MCH 28.3 pg (26.0-34.0); MCHC 32.2 g/dL (31.0-37.0); MCV 87.6 fL (80.0-100.0); MEAN PLATELET VOLUME 9.2 fL (7.4-10.4); MONOCYTES 38.1 % (2-11); NEUTROPHILS 19.6 % (40-80); PLATELET COUNT 177 10x3/uL (130-400); RBC 3.15 10x6/uL (4.00-5.40); RDW 14.3 % (11.5-14.5)
[2020-04-22 08:57] LABS: WBC 2.2 10x3/uL (4.8-10.8)
[2020-04-22 09:06] LABS: ALBUMIN 2.8 g/dL (3.4-5.0); ANION GAP 13.6 mmol/L (8-16); BILIRUBIN - TOTAL 3.03 mg/dL (0.2-1.3); CALCIUM 7.9 mg/dL (8.5-10.1); CARBON DIOXIDE 23.3 mmol/L (21.0-32.0); POTASSIUM - SERUM 3.9 mmol/L (3.5-5.1); PROTEIN - SERUM 5.9 g/dL (6.4-8.2)
[2020-04-22 09:18] LABS: CREATININE - SERUM 0.9 mg/dL (0.6-1.3)
[2020-04-22 12:57] VITALS: BP 123/69
[2020-04-22 18:08] VITALS: BP 139/68
[2020-04-22 20:00] VITALS: BP 137/75
[2020-04-23] VITALS: BP 115/69
[2020-04-23 04:00] VITALS: BP 133/74
--- NOTE | 2020-04-23 06:00 | NUR ---
I have reviewed this patient and I concur with the Shift Assessment completed by the Licensed Practical Nurse today this shift.
[2020-04-23 08:13] VITALS: BP 122/69
--- NOTE | 2020-04-23 08:47 | NUR ---
NEW ORDERS NOTED FOR LOW H&H
[2020-04-23 09:08] VITALS: BP 122/69
[2020-04-23 09:31] LABS: ALBUMIN 2.9 g/dL (3.4-5.0); ALKALINE PHOSPHATASE 82 U/L (30-120); ALT (SGPT) 49 U/L (10-68); BILIRUBIN - TOTAL 3.13 mg/dL (0.2-1.3); CALC OSMOLALITY 266 mosm/kg (275-300); CALCIUM 8.6 mg/dL (8.5-10.1); CARBON DIOXIDE 23.7 mmol/L (21.0-32.0); CHLORIDE - SERUM 103 mmol/L (98-107); CREATININE - SERUM 0.7 mg/dL (0.6-1.3); GLUCOSE 105 mg/dL (74-106); POTASSIUM - SERUM 4.2 mmol/L (3.5-5.1); PROTEIN - SERUM 5.9 g/dL (6.4-8.2); SODIUM 135 mmol/L (136-145); UREA NITROGEN 5 mg/dL (7-18); eGFR NON AFRICAN AMERICAN 89 mL/min (90-120)
[2020-04-23 09:47] LABS: EOSINOPHILS 1 % (0-7); LYMPHOCYTES 18 % (15-50); MONOCYTES 27 % (2-11); NEUTROPHILS 26 % (40-80); PLATELET ESTIMATE NORMAL
[2020-04-23 10:42] LABS: WBC 5.6 10x3/uL (4.8-10.8)
[2020-04-23 10:43] LABS: HEMATOCRIT 29.4 % (36.0-48.0); HEMOGLOBIN 9.9 g/dL (12-16); RBC 3.39 10x6/uL (4.00-5.40)
[2020-04-23 10:44] LABS: MCH 29.2 pg (26.0-34.0); MCHC 33.7 g/dL (31.0-37.0); MCV 86.7 fL (80.0-100.0); PLATELET COUNT 177 10x3/uL (130-400); RDW 14.7 % (11.5-14.5)
[2020-04-23 10:45] LABS: MEAN PLATELET VOLUME 9.2 fL (7.4-10.4)
--- NOTE | 2020-04-23 10:57 | NUR ---
BOLUS GIVEN OF0.6 OF DILAUDID, PREPARING TO GIVE BLOOD
--- NOTE | 2020-04-23 16:19 | NUR ---
BOLUS 0.6 OF DILAUDID GIVEN
[2020-04-23 17:07] VITALS: BP 128/64
--- NOTE | 2020-04-23 19:05 | NUR ---
OT NOTE: PT HAD JUST RECEIVED BLOOD TRANSFUSION. REPORTED THAT SHE WAS NOT FEELING WELL. ABLE TO PERFORM SIT TO STAND WITH MIN ASSIST. ROM IS WFLS. WILL CONT TMT TOMMOROW. LETTY ELLER, OTR/L [phone]
[2020-04-23 20:00] VITALS: BP 142/64
--- NOTE | 2020-04-23 23:32 | NUR ---
REC'D CHGE OF SHIFT SITTING UP IN BEDSIDE CHAIR EYES CLOSED RESP. DEEP AND EVEN. WILL CONTINUE TO MONITOR FOR ANY CHGES AND FOLLOW CURENT PLAN OF CARE
[2020-04-24] VITALS: BP 135/74
[2020-04-24 04:00] VITALS: BP 136/82
[2020-04-24 06:47] LABS: BASOPHILS 1.5 % (0-2); EOSINOPHILS 0.7 % (0-7); HEMATOCRIT 31.6 % (36.0-48.0); HEMOGLOBIN 10.5 g/dL (12-16); IMMATURE GRANULOCYTES 2.5 % (0-5); LYMPHOCYTES 13.9 % (15-50); MCH 28.8 pg (26.0-34.0); MCHC 33.2 g/dL (31.0-37.0); MCV 86.6 fL (80.0-100.0); MEAN PLATELET VOLUME 9.1 fL (7.4-10.4); MONOCYTES 26.3 % (2-11); NEUTROPHILS 55.1 % (40-80); PLATELET COUNT 189 10x3/uL (130-400); RBC 3.65 10x6/uL (4.00-5.40); RDW 15.1 % (11.5-14.5)
[2020-04-24 06:48] LABS: WBC 15.4 10x3/uL (4.8-10.8)
[2020-04-24 06:49] LABS: ALBUMIN 2.7 g/dL (3.4-5.0); ALKALINE PHOSPHATASE 90 U/L (30-120); ALT (SGPT) 37 U/L (10-68); BILIRUBIN - TOTAL 2.68 mg/dL (0.2-1.3); CALC OSMOLALITY 267 mosm/kg (275-300); CALCIUM 8.4 mg/dL (8.5-10.1); CARBON DIOXIDE 24.4 mmol/L (21.0-32.0); CHLORIDE - SERUM 103 mmol/L (98-107); CREATININE - SERUM 0.8 mg/dL (0.6-1.3); GLUCOSE 109 mg/dL (74-106); POTASSIUM - SERUM 3.9 mmol/L (3.5-5.1); PROTEIN - SERUM 5.8 g/dL (6.4-8.2); SODIUM 135 mmol/L (136-145); UREA NITROGEN 5 mg/dL (7-18); eGFR NON AFRICAN AMERICAN 76 mL/min (90-120)
--- NOTE | 2020-04-24 07:15 | NUR ---
RECEIVED BEDSIDE REPORT. PT SITTING UP IN CHAIR, C/O PAIN 02/07, EDUCATED PT ON WHEN NEXT BLOUS DOSE IS DUE, PT VERBALIZED UNDERSTANDING. LEFT PORT CVL, PATENT AND INFUSING, NO REDNESS OR SWELLING. BILIARY DRAIN PATENT AND IN PLACE. TELEMETRY IS PLACE, SR 85. PT ABLE TO AMBULATE WITH ONE PERSON ASSIST. PT ON CONTACT ISOLATION. EDUCATED PT ON CL AND NEEDS, VERBALIZED UNDERSTANDING. BED LOW, RAILS X2. CL IN REACH, WILL CONTINUE TO MONITOR.
[2020-04-24 09:25] VITALS: BP 150/93
--- NOTE | 2020-04-24 10:30 | NUR ---
ASSISTED PT TO BR, PT TOLERATED WELL, ESCORTED BACK TO BED. BED LOW, CL IN REACH.
--- NOTE | 2020-04-24 11:30 | NUR ---
PT C/O PAIN 03/10, PROVIDED BOLUS DOSE OF DIL BLUEPRINT PROCESSOR 0.6, WILL CONTINUE TO MONITOR.
[2020-04-24 13:10] VITALS: BP 132/81
--- NOTE | 2020-04-24 14:30 | NUR ---
PT C/O PAIN 03/10, PROVIDED BOLUS DOSE VIA IMPROVEMENT AUDITOR DIL 0.6, WILL CONTINUE TO MONITOR.
[2020-04-24 17:48] VITALS: BP 109/65
--- NOTE | 2020-04-24 20:49 | NUR ---
PT C/O PAIN 03/10, GAVE BOLUS DOSE DIL 0.6 VIA LEVER MILLER, PT TOLERATED WELL. WILL CONTINUE TO MONITOR.
--- NOTE | 2020-04-24 23:40 | NUR ---
PT STATES PAIN 03/10, GAVE BOLUS. DENIES OTHER NEEDS. CL IN REACH, WILL CTM
--- NOTE | 2020-04-25 02:29 | NUR ---
STATES PAIN 10/10, GAVE BOLUS ORDERED. WILL CTM
[2020-04-25 04:00] VITALS: BP 149/82
--- NOTE | 2020-04-25 05:30 | NUR ---
PT STATES PAIN 04/10, GAVE BOLUS ORDERED. WILL CTM
--- NOTE | 2020-04-25 07:15 | NUR ---
RECEIVED BEDSIDE REPORT. PT SITTING UP IN CHAIR A&O X4. LEFT CHEST PORT, PATENT AND INFUSING, NO REDNESS OR SWELLING. BILI DRAIN IN PLACE, PATENT AND DRAINING TO GRAVITY. PT ABLE TO AMBULATE WITH MIN ONE PERSON ASSIST. EDUCATED PT ON CL AND NEEDS, VERBALIZED UNDERSTANDING. BED LOW, RAILS X2. CL IN REACH, WILL CONTINUE TO MONITOR.
[2020-04-25 10:43] VITALS: BP 159/97
--- NOTE | 2020-04-25 12:05 | NUR ---
PT C/O PAIN 03/10, PROVIDED BOLUS DOSE VIA WOOL CLEANER, PT TOLERATED WELL. BED LOW, CL IN REACH.
[2020-04-25 13:03] VITALS: BP 176/91
--- NOTE | 2020-04-25 13:45 | NUR ---
Mutrition follow-up: Pt remains in reverse isolation Diet: Regular with neutropenic precautions PO intake ~47% of last 9 meals Labs reviewed Wt: 150# -> no new wt since admit Last BM charted 04/21; pt receiving Miralax, lactulose Will continue to provide food choices and honor all food preferences. Will provide nutritional supplements. RDN following.
[2020-04-25 14:05] LABS: CALC OSMOLALITY 271 mosm/kg (275-300); CALCIUM 8.3 mg/dL (8.5-10.1); CHLORIDE - SERUM 104 mmol/L (98-107); CREATININE - SERUM 0.7 mg/dL (0.6-1.3); GLUCOSE 111 mg/dL (74-106); POTASSIUM - SERUM 4.2 mmol/L (3.5-5.1); SODIUM 137 mmol/L (136-145); UREA NITROGEN 4 mg/dL (7-18); eGFR NON AFRICAN AMERICAN 89 mL/min (90-120)
[2020-04-25 14:08] LABS: HEMATOCRIT 33.7 % (36.0-48.0); MCH 28.3 pg (26.0-34.0); MCHC 32.6 g/dL (31.0-37.0); MCV 86.6 fL (80.0-100.0); MEAN PLATELET VOLUME 9.2 fL (7.4-10.4); PLATELET COUNT 155 10x3/uL (130-400); RBC 3.89 10x6/uL (4.00-5.40); WBC 16.1 10x3/uL (4.8-10.8)
[2020-04-25 14:47] LABS: ANISOCYTOSIS OCC; LYMPHOCYTES 21 % (15-50); MONOCYTES 16 % (2-11); NEUTROPHILS 47 % (40-80); PLATELET ESTIMATE NORMAL
[2020-04-25 17:22] VITALS: BP 184/93
--- NOTE | 2020-04-25 18:03 | NUR ---
PT C/P PAIN 03/10, PROVIDED BOLUS DOES VIA BYPRODUCTS SUPERVISOR, PT TOLERATED WELL. BED LOW, CL IN REACH.
--- NOTE | 2020-04-25 19:10 | NUR ---
RECEIVED REPORT, ASSUMED CARE, IV PATENT, DENIES NEEDS, NO S/S OF DISTRESS NOTED, PT UP IN CHAIR, CALL LIGHT IN REACH, TOP INVENTORY CONTROL EXECUTIVE INFUSING, BILI DRAIN CLAMPED, A&O X3, FAMILY AT BEDSIDE
[2020-04-25 21:08] VITALS: BP 199/117
[2020-04-26] VITALS (7 sets, daily range): BP systolic 144–211; BP diastolic 78–110
--- NOTE | 2020-04-26 00:08 | NUR ---
I have reviewed this patient and I concur with the Shift Assessment completed by the Licensed Practical Nurse today this shift.
--- NOTE | 2020-04-26 06:37 | NUR ---
COMBINATION BUILDING INSPECTOR TOTAL ON PUMP 379CC, HASN'T BEEN CLEARED/DOCUMENTED FOR 5 DAYS
[2020-04-26 06:55] LABS: BASOPHILS 1.1 % (0-2); EOSINOPHILS 0.7 % (0-7); HEMATOCRIT 33.1 % (36.0-48.0); HEMOGLOBIN 10.9 g/dL (12-16); LYMPHOCYTES 11.8 % (15-50); MCH 28.6 pg (26.0-34.0); MCHC 32.9 g/dL (31.0-37.0); MCV 86.9 fL (80.0-100.0); MEAN PLATELET VOLUME 9.1 fL (7.4-10.4); PLATELET COUNT 154 10x3/uL (130-400); RBC 3.81 10x6/uL (4.00-5.40); RDW 14.9 % (11.5-14.5); WBC 15.5 10x3/uL (4.8-10.8)
[2020-04-26 07:04] LABS: CALC OSMOLALITY 270 mosm/kg (275-300); CALCIUM 8.4 mg/dL (8.5-10.1); CARBON DIOXIDE 26.6 mmol/L (21.0-32.0); CHLORIDE - SERUM 103 mmol/L (98-107); CREATININE - SERUM 0.7 mg/dL (0.6-1.3); GLUCOSE 96 mg/dL (74-106); SODIUM 137 mmol/L (136-145); UREA NITROGEN 5 mg/dL (7-18); eGFR NON AFRICAN AMERICAN 89 mL/min (90-120)
--- NOTE | 2020-04-26 10:09 | NUR ---
UP IN CHAIR, NO DISTRESS NOTED, NAILING MACHINE OPERATOR AUTOMATIC IN PLACE, IV INFUSING, CONT TO MONITOR BP, TAKING PO MEDS WITH EASE
--- NOTE | 2020-04-26 10:17 | NUR ---
UP IN CHAIR MEDICATED THIS AM WITH BP MEDS, CONT TO MONITOR
--- NOTE | 2020-04-26 14:34 | NUR ---
BOLUS 0.6 DILAUDID GIVEN FOR C/O PAIN
--- NOTE | 2020-04-26 17:30 | NUR ---
BOLUS 0.6 DILAUDID FOR PAIN
--- NOTE | 2020-04-26 19:00 | NUR ---
RECEIVED REPORT, ASSUMED CARE, IV PATENT, DENIES NEEDS, NO S/S OF DISTRESS NOTED, PT UP IN CHAIR, CALL LIGHT IN REACH, COAGULATING OPERATOR INFUSING, BILI DRAIN CLAMPED, A&O X3, FAMILY AT BEDSIDE
--- NOTE | 2020-04-27 02:52 | NUR ---
I have reviewed this patient and I concur with the Shift Assessment completed by the Licensed Practical Nurse today this shift.
[2020-04-27 04:00] VITALS: BP 166/79
[2020-04-27 07:07] LABS: HEMATOCRIT 27.9 % (36.0-48.0); HEMOGLOBIN 9.2 g/dL (12-16); MCH 28.8 pg (26.0-34.0); MCV 87.2 fL (80.0-100.0); MEAN PLATELET VOLUME 9.2 fL (7.4-10.4); PLATELET COUNT 125 10x3/uL (130-400)
[2020-04-27 07:09] LABS: WBC 10.9 10x3/uL (4.8-10.8)
[2020-04-27 07:14] LABS: CALC OSMOLALITY 276 mosm/kg (275-300); CARBON DIOXIDE 23.4 mmol/L (21.0-32.0); CHLORIDE - SERUM 110 mmol/L (98-107); CREATININE - SERUM 0.6 mg/dL (0.6-1.3); GLUCOSE 88 mg/dL (74-106); SODIUM 141 mmol/L (136-145); UREA NITROGEN 5 mg/dL (7-18); eGFR NON AFRICAN AMERICAN > 90 mL/min (90-120)
[2020-04-27 07:19] LABS: POTASSIUM - SERUM 3.1 mmol/L (3.5-5.1)
[2020-04-27 07:20] LABS: CALCIUM 6.8 mg/dL (8.5-10.1)
[2020-04-27 07:30] LABS: LYMPHOCYTES 23 % (15-50); MONOCYTES 2 % (2-11); NEUTROPHILS 74 % (40-80); PLATELET ESTIMATE NORMAL
--- NOTE | 2020-04-27 07:35 | NUR ---
REPORTED CRITICAL CALCIUM TO JULIENNE FOR DR HUFF
[2020-04-27 08:00] VITALS: BP 144/90
--- NOTE | 2020-04-27 08:20 | NUR ---
UP IN CHAIR, NO DISTRESS NOTED, IV INFUSING PER PORT, TAKING PO MEDS WITH EASE, CONT TO MONITOR BP
--- NOTE | 2020-04-27 09:08 | NUR ---
BOLUS GIVENOF 0.6 FOR PAIN
[2020-04-27 12:16] VITALS: BP 136/79
--- NOTE | 2020-04-27 12:26 | NUR ---
BOLUS 0.6 FOR PAIN
[2020-04-27 15:00] VITALS: BP 142/87
--- NOTE | 2020-04-27 15:30 | NUR ---
BOLUS GIVEN 0.6 FOR C/O PAIN
--- NOTE | 2020-04-27 18:58 | NUR ---
bolus 0.6 given for pain
--- NOTE | 2020-04-27 19:00 | NUR ---
RECEIVED REPORT, ASSUMED CARE, IV PATENT, DENIES NEEDS, NO S/S OF DISTRESS NOTED, PT UP IN CHAIR, CALL LIGHT IN REACH, REVENUE FIELD AUDITOR INFUSING, BILI DRAIN CLAMPED, A&O X3, FAMILY AT BEDSIDE
[2020-04-27 20:00] VITALS: BP 136/70
[2020-04-28] VITALS: BP 136/50
--- NOTE | 2020-04-28 01:58 | NUR ---
I have reviewed this patient and I concur with the Shift Assessment completed by the Licensed Practical Nurse today this shift.
[2020-04-28 04:00] VITALS: BP 154/85
[2020-04-28 06:55] LABS: BASOPHILS 0.5 % (0-2); EOSINOPHILS 0.6 % (0-7); HEMATOCRIT 30.3 % (36.0-48.0); IMMATURE GRANULOCYTES 14.3 % (0-5); LYMPHOCYTES 18.6 % (15-50); MCH 29.1 pg (26.0-34.0); MCV 88.1 fL (80.0-100.0); MEAN PLATELET VOLUME 9.8 fL (7.4-10.4); PLATELET COUNT 132 10x3/uL (130-400); RBC 3.44 10x6/uL (4.00-5.40); RDW 15.2 % (11.5-14.5); WBC 9.5 10x3/uL (4.8-10.8)
[2020-04-28 07:12] LABS: CALC OSMOLALITY 273 mosm/kg (275-300); CALCIUM 8.1 mg/dL (8.5-10.1); CARBON DIOXIDE 26.8 mmol/L (21.0-32.0); CHLORIDE - SERUM 104 mmol/L (98-107); CREATININE - SERUM 0.7 mg/dL (0.6-1.3); GLUCOSE 101 mg/dL (74-106); SODIUM 138 mmol/L (136-145); UREA NITROGEN 6 mg/dL (7-18); eGFR NON AFRICAN AMERICAN 89 mL/min (90-120)
[2020-04-28 07:13] LABS: POTASSIUM - SERUM 3.9 mmol/L (3.5-5.1)
--- NOTE | 2020-04-28 08:05 | NUR ---
ASSESSMENT PER FLOW SHEET. PATIENT IS WITHOUT DISTRESS.UP IN CHAIR THIS AM. DENIES NEEDS AT PRESENT. QUARTER BACKER IN USE.
--- NOTE | 2020-04-28 08:05 | NUR ---
ASSESSMENT PER FLOW SHEET. PATIENT IS WITHOUT DISTRESS.DENIES NEEDS AT PRESENT. MONITOR FOR NEEDS.CALL LIGHT IN REACH
[2020-04-28 08:13] VITALS: BP 172/92
[2020-04-28 09:03] LABS: ALBUMIN 2.9 g/dL (3.4-5.0); BILIRUBIN - DIRECT 1.26 mg/dL (0.00-0.30); BILIRUBIN - INDIRECT 0.46 mg/dL (0.00-1.00); BILIRUBIN - TOTAL 1.72 mg/dL (0.2-1.3)
--- NOTE | 2020-04-28 11:19 | NUR ---
AMBULATING IN HALLS WITH PT. PATIENT IS WITHOUT DISTRESS
[2020-04-28 12:04] VITALS: BP 147/101
--- NOTE | 2020-04-28 13:56 | NUR ---
OT NOTE: PT CONT TO REPORT THAT SHE IS FEELING BAD, HOWEVER, WANTS TO GET UP AND MOVE AROUND. PT AMB TO BATHROOM WITH CGA; TOILETING WITH SPV; AMB TO SINK AND PERFORMED HAND WASHING WITH CGA WHILE STANDING. PT AMB GREATER THAN 200 FT WITH CGA WITH ONE REST BREAK. PT REMAINS WEAK BUT STANDING BALANCE IS G-/F+. PT REPORTS THAT SHE HAS BEEN GETTING UP AT 2 OR 3 AM AND WALKING THE HALLS. LETTY ELLER, OTR/L [phone]
--- NOTE | 2020-04-28 14:48 | NUR ---
OT NOTE; PT COMPLETED SIT TO STAND WITH CGA. PT REQUIRED MAX A FOR EQUIPMENT MANAGEMENT. PT COMPLETED ADL MOB WITH CGA. PT COMPLETED BUE AROM WITH FUNCTIONAL TASKS. PT EXHIBITED INCREASED ACTIVITY TOLERANCE. [phone] THANK YOU,FRANCIE MANTILLA
[2020-04-28 16:00] VITALS: BP 147/90
[2020-04-28 20:00] VITALS: BP 137/74
[2020-04-29 04:00] VITALS: BP 180/81
[2020-04-29 06:25] LABS: HEMATOCRIT 30.2 % (36.0-48.0); HEMOGLOBIN 9.8 g/dL (12-16); MCH 28.5 pg (26.0-34.0); MCHC 32.5 g/dL (31.0-37.0); MCV 87.8 fL (80.0-100.0); PLATELET COUNT 125 10x3/uL (130-400); RBC 3.44 10x6/uL (4.00-5.40); RDW 15.1 % (11.5-14.5); WBC 7.5 10x3/uL (4.8-10.8)
[2020-04-29 06:31] LABS: CALC OSMOLALITY 269 mosm/kg (275-300); CALCIUM 8.2 mg/dL (8.5-10.1); CARBON DIOXIDE 26.7 mmol/L (21.0-32.0); CHLORIDE - SERUM 103 mmol/L (98-107); CREATININE - SERUM 0.7 mg/dL (0.6-1.3); GLUCOSE 94 mg/dL (74-106); POTASSIUM - SERUM 3.7 mmol/L (3.5-5.1); SODIUM 136 mmol/L (136-145); UREA NITROGEN 6 mg/dL (7-18); eGFR NON AFRICAN AMERICAN 89 mL/min (90-120)
--- NOTE | 2020-04-29 07:30 | NUR ---
ASSESSMENT PER FLOW SHEET. PATIENT UP IN CHAIR. SHE IS WITHOUT DISTRESS.
[2020-04-29 08:58] VITALS: BP 147/87
[2020-04-29 12:03] VITALS: BP 106/59
[2020-04-29 12:20] LABS: EOSINOPHILS 1 % (0-7); LYMPHOCYTES 18 % (15-50); MONOCYTES 12 % (2-11); NEUTROPHILS 50 % (40-80); PLATELET ESTIMATE NORMAL; ROULEAUX OCC
--- NOTE | 2020-04-29 15:28 | NUR ---
Nutrition follow-up: Pt has been walking in chun per nurse Pt receiving a regular diet as tolerated PO intake has improved; now ~60% average of meals labs reviewed Wt: 150# RDN following.
--- NOTE | 2020-04-29 15:51 | NUR ---
OT NOTE: PT DOING BETTER TODAY. AND DOG HERE TO VISIT.. PT IN MUCH BETTER SPIRITS.. IN ROOM AMBULATION WITHOUT ASSIST. CONCERNED ABOUT EDEMA IN LES. PT STATES THAT SHE HAS THEM ELEVATED ON BED MOST OF DAY, BUT ONCE SHE PUTS THEM DOWN IT COMES RIGHT BACK. PT ABLE TO AMB GREATER THAN 200 FT WITH CGA. PT REPORTS FEELING MUCH BETTER TODAY, BUT SAYS THAT SHE WILL NOT FEEL WELL TOMORROW DUE TO ANOTHER CHEMO TMT. LETTY ELLER, OTR/L [phone]
--- NOTE | 2020-04-29 17:57 | NUR ---
OT NOTE: PT COMPLETED SIT TOT STAND WITH SBA. PT COMPLETED DYNAMIC STANDING WITH DONYAKOV GOWN WITH SBA/CGA. PT COMPLETED MOBILITY WITH HH A AROUND NURSING STATION. PT EXHIBITED INCREASED ACTIVITY TOLERANCE. PT STATED SHE FEELS STRONGER AND HAD BEEN OUTSIDE WITH . PT COMPLETED FUNCTIONAL TASKS WITH RENETTA FOY WITH NO C/O PAIN. [phone] THANK YOU,FRANCIE MANTILLA
[2020-04-29 18:09] VITALS: BP 126/82
[2020-04-29 20:00] VITALS: BP 153/81
[2020-04-30 07:36] LABS: CALC OSMOLALITY 275 mosm/kg (275-300); CARBON DIOXIDE 27.2 mmol/L (21.0-32.0); CHLORIDE - SERUM 105 mmol/L (98-107); CREATININE - SERUM 0.6 mg/dL (0.6-1.3); GLUCOSE 106 mg/dL (74-106); POTASSIUM - SERUM 3.4 mmol/L (3.5-5.1); SODIUM 139 mmol/L (136-145); UREA NITROGEN 6 mg/dL (7-18); eGFR NON AFRICAN AMERICAN > 90 mL/min (90-120)
[2020-04-30 07:49] LABS: BASOPHILS 0.5 % (0-2); EOSINOPHILS 0.7 % (0-7); HEMATOCRIT 29.4 % (36.0-48.0); HEMOGLOBIN 9.7 g/dL (12-16); LYMPHOCYTES 23.2 % (15-50); MCH 28.8 pg (26.0-34.0); MCV 87.2 fL (80.0-100.0); MEAN PLATELET VOLUME 9.9 fL (7.4-10.4); MONOCYTES 6.7 % (2-11); NEUTROPHILS 62.9 % (40-80); PLATELET COUNT 115 10x3/uL (130-400); RBC 3.37 10x6/uL (4.00-5.40); RDW 14.8 % (11.5-14.5); WBC 5.7 10x3/uL (4.8-10.8)
[2020-04-30 09:21] VITALS: BP 140/68
--- NOTE | 2020-04-30 10:32 | NUR ---
ASSESSMENT COMPLETED PER FLOW SHEET. PAIN MEDS HAVE BEEN GIVEN ORDERED. PATIENT RESTING IN CHAIR,WITHOUT SIGNS OF DISTRESS.
[2020-04-30 12:38] VITALS: BP 160/82
--- NOTE | 2020-04-30 13:01 | NUR ---
CHEMO ORDERED. BLOOD RETURN CONFIRMED VIA PORT.
[2020-05-01] VITALS (7 sets, daily range): BP systolic 132–190; BP diastolic 70–91
--- NOTE | 2020-05-01 05:53 | NUR ---
I have reviewed this patient and I concur with the Shift Assessment completed by the Licensed Practical Nurse today this shift.
--- NOTE | 2020-05-01 19:43 | NUR ---
0700 BEDSIDE REPORT RECEIVED FROM RAEGAN BLANCO COMPLETE ASKING FOR PAIN MED SEE MAR
--- NOTE | 2020-05-01 19:44 | NUR ---
1200 PATIENTS SON IN ROOM PT RREMAINS UP IN RECLINER CHAIR
--- NOTE | 2020-05-01 19:44 | NUR ---
1600 SRESSING CHANGED TO BILLARY DRAIN TUBE FLUSHED WITH 10ML STERILE NS
[2020-05-02] VITALS: BP 178/80
[2020-05-02 04:00] VITALS: BP 173/75
[2020-05-02 06:08] LABS: ALBUMIN 2.8 g/dL (3.4-5.0); ALKALINE PHOSPHATASE 84 U/L (30-120); ALT (SGPT) 37 U/L (10-68); BILIRUBIN - TOTAL 1.63 mg/dL (0.2-1.3); CALC OSMOLALITY 275 mosm/kg (275-300); CALCIUM 8.2 mg/dL (8.5-10.1); CARBON DIOXIDE 28.9 mmol/L (21.0-32.0); CHLORIDE - SERUM 103 mmol/L (98-107); CREATININE - SERUM 0.7 mg/dL (0.6-1.3); GLUCOSE 122 mg/dL (74-106); POTASSIUM - SERUM 3.5 mmol/L (3.5-5.1); PROTEIN - SERUM 6.2 g/dL (6.4-8.2); SODIUM 138 mmol/L (136-145); UREA NITROGEN 10 mg/dL (7-18); eGFR NON AFRICAN AMERICAN 89 mL/min (90-120)
[2020-05-02 09:03] VITALS: BP 172/92
[2020-05-02 09:17] LABS: BASOPHILS 0.7 % (0-2); EOSINOPHILS 1.2 % (0-7); HEMATOCRIT 29.2 % (36.0-48.0); HEMOGLOBIN 9.8 g/dL (12-16); IMMATURE GRANULOCYTES 1.5 % (0-5); LYMPHOCYTES 20.6 % (15-50); MCH 29.4 pg (26.0-34.0); MCHC 33.6 g/dL (31.0-37.0); MCV 87.7 fL (80.0-100.0); MEAN PLATELET VOLUME 10.2 fL (7.4-10.4); PLATELET COUNT 118 10x3/uL (130-400); RBC 3.33 10x6/uL (4.00-5.40); RDW 14.8 % (11.5-14.5); WBC 4.1 10x3/uL (4.8-10.8)
[2020-05-02] MEDS ORDERED: FENTANYL1 PATCH .1 TRANSDERM (10:18)
[2020-05-02] MEDS ORDERED: ROXICODONE15 MG PO (10:18)
--- NOTE | 2020-05-02 10:19 | NUR ---
MEDICATION RECONCILIATION DISCUSSED AND COMPLETED WITH DR JADE. HE WILL SUBMIT RX FOR DURAGESIC AND OXYCODONE FROM HIS OFFICE. HE DOES NOT WANT HER TO HAVE FLU SHOT DUE TO RECENT CHEMO.
[2020-05-02] MEDS ORDERED: SALINE FLUSH (10:24)
--- NOTE | 2020-05-02 16:49 | NUR ---
MEDIPORT DEACCESSED WITH DRESSING APPLIED. VERBALIZED UNDERSTANDING OF DISCHARGE INSTRUCTIONS. STABLE AT TIME OF DISCHARGE.
--- NOTE | 2020-05-02 16:52 | NUR ---
OT NOTE: PT COMPLETED SIT TO STAND WITH SBA. PT COMPLETED ADL MOB WITH HH A. PT COMPLETED STANDING BALANCE WITH FUNCTIONAL TASKS REQUIRED SBA/CGA. [phone] THANK YOU,FRANCIE MANTILLA
--- NOTE | 2020-05-05 09:10 | MORECARE ---
CASE MANAGEMENT DISCHARGE SUMMARY PATIENT: CHERIE RANDALL UNIT: [id number] ADM DATE: 03/25/20 AGE: 64 : 55 SEX: F ROOM/BED: D.2214 AUTHOR: JOSHDOC PHYSICIAN: REFERRING PHYSICIAN: YI JADE MD DATE OF SERVICE: 05/05/20 Discharge Plan Patient Name: CHERIE RANDALL Facility: [facility]:[place] : 1955 Planned Disposition: Home with Home Health Anticipated Discharge Date: Discharge Date: 05/02/2020 Expected LOS: Initial Reviewer: [email or web address] Initial Review Date: 03/26/2020 Generated: 05/05/20 10:09 am DCP- Discharge Planning Updated by [email or web address]: Adelaide Prakash on 04/01/20 12:[address] Patient Name: CHERIE RANDALL Admission Status: ER Accout number: [id number] Admission Date: 03-25-2020 : 1955 Admission Diagnosis:DIFFUSE LARGE B-CELL LYMPHOMA, UNSPECIFIED SITE Attending: YI JADE Current LOS: 7 Anticipated DC Date: Planned Disposition: Home with Home Health Primary Insurance: MEDICAID [place] Discharge Planning Comments: CM met with patient to complete initial dc planning assessment. CM educated patient on the CM role and verbal consent given by patient to complete assessment. Patient lives at home with her where she was independent with her care. At discharge patient plans to return home and feels this is a & felt that this was a safe discharge. She did state that she may go to her [facility] ( [address] [place] [address] [place] [address]) CM discussed availability of home health, rehab services, and medical equipment. She has a cane I think she may need a walker, she appears very weak. I also encouraged home health this time and she was in agreement. ALBERT with [facility] . I offered to send a referral to a in home care place to see if she might qualify. She did not want that she said she has plenty of friends who can help her. . She said that she has great friends. Patient denied known discharge needs at this time. CM will continue to follow and will assist as needed with dc plans/needs. Photo Colorer: Adelaide Prakash DCPIA - Discharge Planning Initial Assessment Updated by [email or web address]: Adelaide Prakash on 04/01/20 1:06 pm * How many steps to enter\exit or inside your home? * PCP JAVIER JERONIMO * Pharmacy [facility] * Preadmission Environment Home with Family * ADLs Independent * Equipment Cane * List name and contact numbers for known caregivers / representatives who currently or will assist patient after discharge: PORFIRIO RANDALL [phone] * Verbal permission to speak to the caregivers and representatives has been obtained from the patient. N/A * Community resources currently utilized None * Additional services required to return to the preadmission environment? Yes * Can the patient safely return to the preadmission environment? Yes * Has this patient been hospitalized within the prior 30 days at any hospital? Yes Coverage Notice Reviewer: [email or web address] - Adelaide Prakash Notice Issued Date-Time: 04/01/2020 13:00 Notice Type: Patient Choice Letter Notice Delivered To: Patient Relationship to Patient: Hand Shaper Name: Delivery Method: HAND - Hand Delivered Patricia Days: Prior Verbal Notification: Recipient Understood Notice: Yes Recipient Signature: Yes Med Rec Note Co-signed by Attending: Coverage Notice Comment: emmy alberto Last DP export: 04/01/20 12:28 pm Patient Name: CHERIE RANDALL Page [id number] at 0910 All edits/amendments must be made on the electronic document DICTATION DATE: 05/05/20908 MANAGER WORKERS COMPENSATION: AJNNA 05/05/20908 RPT#: [id number] DC DATE:05/02/20 STATUS: DIS IN [facility] [address] [place] [address] END OF REPORT
== END 2020-05-02 16:51 | disposition home or self-care (01) | DRG 823 ==
LOC: D.ER 12:41 → D.MS 22:24 → D.SDCHOLD 03-26 13:54 → D.MS 05-02 16:51
PROVIDERS: Emergency Medicine; General Practice; Internal Medicine Gastroenterology; Radiology Diagnostic Radiology; Radiology Vascular & Interventional Radiology; Specialist; ADMIT Legal Medicine; ATTEND Legal Medicine
PROC: 0F798ZZ Dilation of Common Bile Duct, Via Natural or Artificial Opening Endoscopic (ICD-10-PCS; 2020-03-27)
PROC: BF101ZZ Fluoroscopy of Bile Ducts using Low Osmolar Contrast (ICD-10-PCS; 2020-03-27)
PROC: 0F9930Z Drainage of Common Bile Duct with Drainage Device, Percutaneous Approach (ICD-10-PCS; 2020-03-28)
PROC: 0FPB30Z Removal of Drainage Device from Hepatobiliary Duct, Percutaneous Approach (ICD-10-PCS; 2020-04-02)
PROC: 0FH Hepatobiliary System and Pancreas, Insertion (ICD-10-PCS; 2020-04-02)
PROC: BF0C1ZZ Plain Radiography of Hepatobiliary System, All using Low Osmolar Contrast (ICD-10-PCS; principal; 2020-04-02 11:00)
PROC: 0JH63XZ Insertion of Tunneled Vascular Access Device into Chest Subcutaneous Tissue and Fascia, Percutaneous Approach (ICD-10-PCS; 2020-04-09)
PROC: BF001ZZ Plain Radiography of Bile Ducts using Low Osmolar Contrast (ICD-10-PCS; 2020-04-16)
DX: C83.30 Diffuse large B-cell lymphoma, unspecified site (principal); K83.1 Obstruction of bile duct; D61.89 Other specified aplastic anemias and other bone marrow failure syndromes; R17 Unspecified jaundice; I10 Essential (primary) hypertension; D64.9 Anemia, unspecified; B19.20 Unspecified viral hepatitis C without hepatic coma; E87.6 Hypokalemia; K59.00 Constipation, unspecified